=== PATIENT | male | born 1950 | race African-American/Black ===

== ENCOUNTER 2020-05-28 13:18 | Inpatient (IN) | payer MEDICARE, MEDICAID ==
[~2020-05-28] VITALS: Ht 182.9 cm; Wt 133.8 kg
[2020-05-28 14:27] LABS: BASOPHILS 0.1 % (0-2); EOSINOPHILS 1.6 % (0-7); HEMOGLOBIN 7.9 g/dL (13.5-17.5); IMMATURE GRANULOCYTES 0.5 % (0-5); LYMPHOCYTE ABS# 1.26 10x3/uL (1.32-3.57); LYMPHOCYTES 10.8 % (15-50); MCH 24.5 pg (26.0-34.0); MCHC 30.4 g/dL (31.0-37.0); MCV 80.7 fL (80.0-100.0); MEAN PLATELET VOLUME 9.9 fL (7.4-10.4); NEUTROPHIL ABS# 9.24 10x3/uL (1.78-5.38); PLATELET COUNT 195 10x3/uL (130-400); RBC 3.22 10x6/uL (4.20-6.10); RDW 20.3 % (11.5-14.5); WBC 11.7 10x3/uL (4.8-10.8)
[2020-05-28 14:31] LABS: APTT 23.2 SECONDS (22.8-39.4); INR 1.32 (0.85-1.17); PROTIME 15.2 SECONDS (11.6-15.0)
[2020-05-28 14:34] LABS: CALC OSMOLALITY 278 mosm/kg (275-300); CALCIUM 8.3 mg/dL (8.5-10.1); CARBON DIOXIDE 29.9 mmol/L (21.0-32.0); CHLORIDE - SERUM 103 mmol/L (98-107); CREATININE - SERUM 1.1 mg/dL (0.6-1.3); GLUCOSE 123 mg/dL (74-106); SODIUM 136 mmol/L (136-145); UREA NITROGEN 29 mg/dL (7-18); eGFR NON AFRICAN AMERICAN 71 mL/min (90-120)
[2020-05-28 15:03] LABS: ALBUMIN 1.3 g/dL (3.4-5.0); ALKALINE PHOSPHATASE 127 U/L (30-120); ALT (SGPT) 36 U/L (10-68); BILIRUBIN - TOTAL 0.31 mg/dL (0.2-1.3); CKMB 0.1 U/L (0.0-3.6); CREATINE KINASE 14 UL (21-232); PRO BNP 1269 pg/mL (0-125); PROTEIN - SERUM 6.6 g/dL (6.4-8.2); TROPONIN-I < 0.017 ng/mL (0.000-0.060)
[2020-05-28 19:21] VITALS: BP 120/57; BMI 40.8
[2020-05-28 20:00] VITALS: BP 113/43
--- NOTE | 2020-05-28 20:00 | NUR ---
PT IN TEARS IN ROOM. WHEN ASKED IF HE WAS IN PAIN, HE REPLIED, "I AM." UNABLE TO VOICED WHERE. DR. MARILYN FREIRE, CTM.
[2020-05-29] VITALS: BP 111/50
--- NOTE | 2020-05-29 01:33 | NUR ---
I have reviewed this patient and I concur with the Shift Assessment completed by the Licensed Practical Nurse today this shift.
[2020-05-29 04:00] VITALS: BP 111/42
[2020-05-29] MEDS ORDERED: ALBUTEROL1.25 MG/3 INH (05:55)
[2020-05-29] MEDS ORDERED: CARAFATE1 G PO (05:55)
[2020-05-29] MEDS ORDERED: LIPITOR20 MG PO (05:55)
[2020-05-29] MEDS ORDERED: TRUSOPT 2 % OPT10 ML EACH EYE (05:56)
[2020-05-29] MEDS ORDERED: ZYRTEC10 MG PO (05:56)
[2020-05-29] MEDS ORDERED: FLUTICASONE PRO16 GM NASAL (05:57)
[2020-05-29] MEDS ORDERED: PROZAC40 MG PO (05:57)
[2020-05-29] MEDS ORDERED: PROZAC20 MG PO (05:57)
[2020-05-29] MEDS ORDERED: CARDURA2 MG PO (05:57)
[2020-05-29] MEDS ORDERED: HEALTHYLAX17 GM PO (05:58)
[2020-05-29] MEDS ORDERED: HYDROCODON-ACE1 EAC7 PO (05:58)
[2020-05-29] MEDS ORDERED: ACETAMINOP160 MG/5 M PO (05:59)
[2020-05-29] MEDS ORDERED: ACIDOPHILUS-PE1 EACH PO (06:00)
[2020-05-29] MEDS ORDERED: LEVSIN/ANASP0.125 MG PO (06:00)
[2020-05-29] MEDS ORDERED: LOPRESSOR25 MG PO (06:01)
[2020-05-29] MEDS ORDERED: PROMOD LIQUID P30 M1 PO (06:02)
[2020-05-29] MEDS ORDERED: XARELTO20 MG PO (06:03)
[2020-05-29] MEDS ORDERED: BOUDREAUXS BUTT60 GM TOPICAL (06:03)
[2020-05-29] MEDS ORDERED: TIMOPTIC 0.5 % O5 ML EACH EYE (06:03)
[2020-05-29] MEDS ORDERED: GALZIN50 MG PO (06:04)
[2020-05-29 07:38] LABS: BILIRUBIN NEGATIVE (NEGATIVE); KETONE NEGATIVE (NEGATIVE); NITRITE NEGATIVE (NEGATIVE)
[2020-05-29 07:43] LABS: BACTERIA FEW HPF (NONE SEEN); SQUAMOUS EPITHELIAL OCC HPF (0-4); WHITE CELLS - URINE 0-5 HPF (0-1)
[2020-05-29 07:45] LABS: ALBUMIN 1.5 g/dL (3.4-5.0); ALKALINE PHOSPHATASE 105 U/L (30-120); ALT (SGPT) 30 U/L (10-68); CALC OSMOLALITY 283 mosm/kg (275-300); CALCIUM 8.4 mg/dL (8.5-10.1); CARBON DIOXIDE 30.4 mmol/L (21.0-32.0); CHLORIDE - SERUM 106 mmol/L (98-107); CREATININE - SERUM 0.9 mg/dL (0.6-1.3); GLUCOSE 82 mg/dL (74-106); MAGNESIUM - SERUM 1.8 mg/dL (1.8-2.4); PHOSPHOROUS 4.5 mg/dL (2.5-4.9); POTASSIUM - SERUM 4.1 mmol/L (3.5-5.1); PROTEIN - SERUM 5.9 g/dL (6.4-8.2); SODIUM 140 mmol/L (136-145); UREA NITROGEN 28 mg/dL (7-18); eGFR NON AFRICAN AMERICAN 89 mL/min (90-120)
[2020-05-29 08:28] VITALS: BP 105/57
[2020-05-29 10:04] LABS: BASOPHILS 0.1 % (0-2); EOSINOPHILS 1.6 % (0-7); HEMATOCRIT 23.6 % (42.0-54.0); IMMATURE GRANULOCYTES 0.3 % (0-5); LYMPHOCYTE ABS# 1.55 10x3/uL (1.32-3.57); LYMPHOCYTES 13.1 % (15-50); MCH 24.7 pg (26.0-34.0); MCHC 30.5 g/dL (31.0-37.0); MCV 80.8 fL (80.0-100.0); MEAN PLATELET VOLUME 9.9 fL (7.4-10.4); MONOCYTES 10.3 % (2-11); NEUTROPHIL ABS# 8.81 10x3/uL (1.78-5.38); NEUTROPHILS 74.6 % (40-80); PLATELET COUNT 210 10x3/uL (130-400); RBC 2.92 10x6/uL (4.20-6.10); RDW 20.4 % (11.5-14.5); WBC 11.8 10x3/uL (4.8-10.8)
[2020-05-29 10:20] LABS: HEMOGLOBIN 7.2 g/dL (13.5-17.5)
--- NOTE | 2020-05-29 10:41 | NUR ---
CALL TO DR GARCIA'S OFFICE FOR CLARIFICATION OF ORDERS. ALSO TO REPORT HEMOGLOBIN OF 7.2.
[2020-05-29 12:17] VITALS: BP 111/54
[2020-05-29 14:44] VITALS: BMI 40.7
--- NOTE | 2020-05-29 18:52 | NUR ---
TUBE FEEDINGS INITAIATED JEVITY 1.5 @ 40/HR WITH 25 CC FLUSH EVERY 2 HOURS.
[2020-05-29 21:49] VITALS: BP 122/50
--- NOTE | 2020-05-29 23:49 | NUR ---
I have reviewed this patient and I concur with the Shift Assessment completed by the Licensed Practical Nurse today this shift.
[2020-05-30 00:05] VITALS: BP 130/51
--- NOTE | 2020-05-30 04:02 | NUR ---
PEG TUBE RESIDUAL < 10ML. INCREASED FEED TO 50ML/HR. CTM.
[2020-05-30 04:59] VITALS: BP 153/84
--- NOTE | 2020-05-30 08:02 | NUR ---
RESTING IN BED, NO DISTRESS NOTED, IV INFUSING PER L ARM, JEVITY AT 50, CONT TO MONITOR RESIDUAL, TELE IN PLACE, EYES CLOSED, CONT TO MONITOR
[2020-05-30 08:54] VITALS: BP 104/58
[2020-05-30 11:13] LABS: BASOPHILS 0.1 % (0-2); EOSINOPHILS 1.8 % (0-7); HEMATOCRIT 25.9 % (42.0-54.0); HEMOGLOBIN 7.9 g/dL (13.5-17.5); IMMATURE GRANULOCYTES 0.4 % (0-5); LYMPHOCYTE ABS# 1.32 10x3/uL (1.32-3.57); LYMPHOCYTES 14.5 % (15-50); MCH 24.8 pg (26.0-34.0); MCHC 30.5 g/dL (31.0-37.0); MCV 81.2 fL (80.0-100.0); MEAN PLATELET VOLUME 9.5 fL (7.4-10.4); NEUTROPHILS 71.2 % (40-80); PLATELET COUNT 201 10x3/uL (130-400); RBC 3.19 10x6/uL (4.20-6.10); RDW 19.9 % (11.5-14.5); WBC 9.1 10x3/uL (4.8-10.8)
[2020-05-30 11:38] LABS: ALKALINE PHOSPHATASE 91 U/L (30-120); BILIRUBIN - TOTAL 0.39 mg/dL (0.2-1.3); CALCIUM 8.8 mg/dL (8.5-10.1); CARBON DIOXIDE 29.4 mmol/L (21.0-32.0); CHLORIDE - SERUM 107 mmol/L (98-107); POTASSIUM - SERUM 3.7 mmol/L (3.5-5.1); PROTEIN - SERUM 6.5 g/dL (6.4-8.2); SODIUM 141 mmol/L (136-145); UREA NITROGEN 27 mg/dL (7-18); VANCOMYCIN - TROUGH 26.3 ug/mL (10.0-20.0); eGFR NON AFRICAN AMERICAN 79 mL/min (90-120)
[2020-05-30 11:39] LABS: ALT (SGPT) 22 U/L (10-68); CALC OSMOLALITY 289 mosm/kg (275-300); GLUCOSE 174 mg/dL (74-106)
[2020-05-30 14:48] VITALS: BP 119/52
[2020-05-30 17:51] VITALS: BP 124/52
--- NOTE | 2020-05-30 20:16 | NUR ---
PATIENT RESTING IN BED WITH NO S/S OF DISTRESS. PATIENT DENIES NEEDS AT THIS TIME. BED IN LOWEST POSITION AND CALL LIGHT IN REACH. ENCOURAGED PATIENT TO CALL WITH NEEDS.
[2020-05-30 20:43] VITALS: BP 121/52
--- NOTE | 2020-05-30 21:46 | NUR ---
ADMINISTERED MEDS PER ORDERS. PATIENT MELINA WELL. ENCOURAGED TO CALL WITH NEEDS.
[2020-05-31 07:13] LABS: BASOPHILS 0.1 % (0-2); EOSINOPHILS 1.9 % (0-7); HEMOGLOBIN 7.8 g/dL (13.5-17.5); IMMATURE GRANULOCYTES 0.4 % (0-5); LYMPHOCYTE ABS# 1.48 10x3/uL (1.32-3.57); LYMPHOCYTES 15.5 % (15-50); MCH 24.5 pg (26.0-34.0); MCV 81.5 fL (80.0-100.0); MEAN PLATELET VOLUME 9.7 fL (7.4-10.4); MONOCYTES 12.5 % (2-11); NEUTROPHIL ABS# 6.63 10x3/uL (1.78-5.38); NEUTROPHILS 69.6 % (40-80); PLATELET COUNT 215 10x3/uL (130-400); RBC 3.19 10x6/uL (4.20-6.10); RDW 19.9 % (11.5-14.5); WBC 9.5 10x3/uL (4.8-10.8)
[2020-05-31 07:40] LABS: ALBUMIN 2.3 g/dL (3.4-5.0); ALKALINE PHOSPHATASE 88 U/L (30-120); ALT (SGPT) 23 U/L (10-68); CALC OSMOLALITY 286 mosm/kg (275-300); CALCIUM 8.2 mg/dL (8.5-10.1); CARBON DIOXIDE 29.5 mmol/L (21.0-32.0); CHLORIDE - SERUM 105 mmol/L (98-107); CREATININE - SERUM 0.9 mg/dL (0.6-1.3); GLUCOSE 190 mg/dL (74-106); POTASSIUM - SERUM 3.9 mmol/L (3.5-5.1); PROTEIN - SERUM 6.2 g/dL (6.4-8.2); SODIUM 140 mmol/L (136-145); UREA NITROGEN 22 mg/dL (7-18); eGFR NON AFRICAN AMERICAN 89 mL/min (90-120)
[2020-05-31 09:27] VITALS: BP 156/60
--- NOTE | 2020-05-31 11:45 | NUR ---
RESTING IN BED, NO DISTRESS NOTED, O2 PER TRACH, JEVITY PER PEG AT 70, TURNED PER STAFF, SANDOVAL TO GRAVITY
--- NOTE | 2020-05-31 11:55 | NUR ---
NEW IV STARTED TO L HAND FOR BLOOD TRANSFUSION
--- NOTE | 2020-05-31 14:52 | NUR ---
BLOOD TRANSFUSION STARTED, CONT TO MONITOR
--- NOTE | 2020-05-31 14:59 | EC ---
PATIENT:SERGE DURHAM DATE OF SERVICE: 05/28/20 SEX: M MEDICAL RECORD: [id number] DATE OF : [birth year] LOCATION:D.MS Fried[facility] AGE OF PATIENT: 69 ADMISSION DATE: 05/28/20 REFERRING PHYSICIAN: INTERPRETING PHYSICIAN: REILLY JIMENEZ MD ECHOCARDIOGRAM REPORT ECHO CHARGES 4 ECHO COMPLETE Date: 05/29/20 CLINICAL DIAGNOSIS: ANASARCA ECHOCARDIOGRAPHIC MEASUREMENTS (adult normal given) AC root (d.<3.7cm) 2.8 cm LV Septum d (<1.2 cm> 1.2 cm Valve Excursion 1.8 cm LV Septum (systole) 1.5 cm Left Atria (s.<4.0cm> 3.1 cm LVPW d(<1.2cm) 1.0 cm RV (d.<2.3cm) 3.0 cm LVPW (sytole) 1.4 cm LV diastole(<5.6CM) 4.8 cm MV E-F(>70mm/sec) cm LV systole 3.2 cm LVOT Diameter 1.8 cm MV exc.(>10mm) 1.7 cm Est.ejection fraction (50-75%) % DOPPLER: LVIT cm/sec A 97 cm/sec E 72 cm/sec LA cm/sec RVSP 41 mmHg LVOT 99 cm/sec AOP1/2T m/s Asc. Ao 159 cm/sec RVOT 71 cm/sec RA cm/sec PA 90 cm/sec AV Gradient Peak 10.1 mmHg AV Mean 5.3 mmHg AV Area 1.6 cm MV Gradient Peak 5.1 mmHg MV Mean 2.9 mmHg MV Area cm COMMENTS: Family Resource Management Specialist: Luz Marina ALBARADO Diesel Mechanic Construction: 5 Dr. Jimenez TAPE# Pericardial Effusion Y DATE OF SERVICE: INTERPRETATION: Normal left ventricular chamber size and contractile function, ejection fraction 55%. Left atrial chamber appears normal. Right atrium and right ventricular chamber size and function appears normal. Aortic valve appears normal. No aortic regurgitation/stenosis. Mitral valve appears normal. No mitral regurgitation. Tricuspid valve appears normal. Trace tricuspid regurgitation. Pulmonic valve appears normal. No pulmonary insufficiency. No pericardial effusion visualized. ECHOCARDIOGRAM REPORT [id number] SERGE DURHAM IMPRESSION: Normal left ventricular chamber size and contractile function, ejection fraction 55%. TRANSINT:[id number] Voice Confirmation ID: [id number] DOCUMENT ID: [id number] REILLY JIMENEZ MD at 1459 CC: [id number] DICTATION DATE: 05/30/20 1317 VAT WASHER: 05/30/20 1534 ADM IN [facility] [address] [place] [id number]
[2020-05-31 15:22] VITALS: BP 130/62
--- NOTE | 2020-05-31 18:19 | NUR ---
BLOOD COMPLETED, MELINA WELL, CONT TO MONITOR
--- NOTE | 2020-05-31 19:48 | NUR ---
PATIENT RESTING IN BED WITH NO S/S OF DISTRESS. PATIENT DENIES NEEDS AT THIS TIME. BED IN LOWEST POSITION, CALL LIGHT IN REACH, BED ALARM ON. ENCOURAGED PATIENT TO CALL WITH NEEDS.
--- NOTE | 2020-05-31 20:22 | NUR ---
ADMINISTERED MEDS PER ORDERS. PATIENT MELINA WELL. ENCOURAGED TO CALL WITH NEEDS.
[2020-05-31 23:02] VITALS: BP 136/67
[2020-06-01 05:16] VITALS: BP 124/45
[2020-06-01 08:35] VITALS: BP 143/53
--- NOTE | 2020-06-01 08:50 | NUR ---
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
[2020-06-01 11:27] VITALS: BP 114/51
--- NOTE | 2020-06-01 13:40 | NUR ---
Nutrition follow-up: NPO at this time Jevity 1.5 cata infusing at goal rate of 70 ml/hr via PEG tube Pt tolerating TF at goal rate per nurse Labs reviewed Wt: 289# Tolerating TF at 70 ml/hr goal RDN follow-up: 06/04/20
--- NOTE | 2020-06-01 14:07 | MORECARE ---
CASE MANAGEMENT DISCHARGE SUMMARY PATIENT: SERGE DURHAM UNIT: [id number] ADM DATE: 05/28/20 AGE: 69 : 51 SEX: M ROOM/BED: D.2224 AUTHOR: BELLO PENA PHYSICIAN: REFERRING PHYSICIAN: MAYTE GARCIA MD DATE OF SERVICE: 06/01/20 Discharge Plan Patient Name: SERGE DURHAM Facility: [facility]:[place] : 1950 Planned Disposition: Anticipated Discharge Date: Discharge Date: Expected LOS: Initial Reviewer: [email or web address] Initial Review Date: 05/28/2020 Generated: 06/01/20 3:06 pm Patient Name: SERGE DURHAM Page 88435 at 1407 All edits/amendments must be made on the electronic document DICTATION DATE: 06/01/20 140 PULLEY MORTISER OPERATOR: AMILCAR 06/01/20 1407 RPT#: [id number] DC DATE: STATUS: ADM IN [facility] [address] [place] [address] END OF REPORT
[2020-06-01 14:29] LABS: BASOPHILS 0.1 % (0-2); EOSINOPHILS 0.6 % (0-7); HEMATOCRIT 27.8 % (42.0-54.0); HEMOGLOBIN 8.4 g/dL (13.5-17.5); IMMATURE GRANULOCYTES 0.4 % (0-5); LYMPHOCYTE ABS# 1.65 10x3/uL (1.32-3.57); MCH 25.1 pg (26.0-34.0); MCHC 30.2 g/dL (31.0-37.0); MEAN PLATELET VOLUME 9.6 fL (7.4-10.4); MONOCYTES 8.7 % (2-11); NEUTROPHIL ABS# 10.76 10x3/uL (1.78-5.38); NEUTROPHILS 78.2 % (40-80); PLATELET COUNT 190 10x3/uL (130-400); RBC 3.35 10x6/uL (4.20-6.10); RDW 19.8 % (11.5-14.5)
[2020-06-01 14:31] LABS: WBC 13.8 10x3/uL (4.8-10.8)
[2020-06-01 14:43] LABS: ALBUMIN 2.1 g/dL (3.4-5.0); ANION GAP 15.2 mmol/L (8-16); BILIRUBIN - TOTAL 0.46 mg/dL (0.2-1.3); CALCIUM 8.3 mg/dL (8.5-10.1); CARBON DIOXIDE 26.1 mmol/L (21.0-32.0); CREATININE - SERUM 1.1 mg/dL (0.6-1.3); POTASSIUM - SERUM 4.3 mmol/L (3.5-5.1); PROTEIN - SERUM 5.8 g/dL (6.4-8.2); VANCOMYCIN - TROUGH 25.5 ug/mL (10.0-20.0)
--- NOTE | 2020-06-01 15:18 | NUR ---
SPOKE WITH SHERRILL BASHIR AT DR. SANDERS OFFICE NOTIFIED OF CRITICAL LACTIC ACID 3.0
[2020-06-01 17:19] VITALS: BP 125/46
--- NOTE | 2020-06-01 19:45 | NUR ---
RECEIVED BEDSIDE REPORT. PT LAYING IN BED, NO SIGNS OF DISTRESS. BED LOW, ALARM ON. WILL CONTINUE TO MONITOR.
--- NOTE | 2020-06-01 19:45 | NUR ---
RECEIVED BEDSIDE REPORT. PT LAYING IN BED, ORIENTATED TO SELF, NON-VERBAL. PIV TO LEFT HAND, PATENT AND INFUSING, NO REDNESS OR SWELLING. PIV TO LEFT CHEST PATENT AND S/L, NO REDNESS OR SWELLING. TRACH COLLAR IN PLACE, ON 10L. SANDOVAL IN PLACE, DRAINING TO GRAVITY, STATLOCK IN PLACE. TELEMETRY IN PLACE, [address] PLACE, PATENT AND INFUSING. GENERALIZED 2+ EDEMA TO ALL EXTREMITIES. WOUND TO RIGHT HEEL, DRSG C/D/I. REDNESS TO BUTTOCKS. PT IS BEDFAST, TOTAL CARE. BED LOW, CL IN REACH.
[2020-06-01 20:00] VITALS: BP 105/45
[2020-06-02] VITALS: BP 112/46
--- NOTE | 2020-06-02 00:50 | NUR ---
PT LEGS ARE TO LARGE FOR THE SCDS ON THE FLOOR. CENTRAL SUPPLY IS CLOSED, WILL ORDER IN THE MORNING.
[2020-06-02 04:00] VITALS: BP 121/53
[2020-06-02 09:28] VITALS: BP 160/57
--- NOTE | 2020-06-02 09:37 | NUR ---
PATIENT SLEEPING. ASSESSMENT COMPLETE. BED LOW. BED ALARM ON. CALL SALGUERO AND PERSONAL ITEMS IN REACH. WILL CONTINUE TO [id number].
--- NOTE | 2020-06-02 10:24 | MORECARE ---
CASE MANAGEMENT DISCHARGE SUMMARY PATIENT: SERGE DURHAM UNIT: [id number] ADM DATE: 05/28/20 AGE: 69 : 51 SEX: M ROOM/BED: D.2224 AUTHOR: BELLO PENA PHYSICIAN: REFERRING PHYSICIAN: MAYTE GARCIA MD DATE OF SERVICE: 06/02/20 Discharge Plan Patient Name: SERGE DURHAM [facility] [facility] 1950 Planned Disposition: Nursing Facility [facility]DA Cert Anticipated Discharge Date: Discharge Date: Expected LOS: Initial Reviewer: [email or web address] Initial Review Date: 05/28/2020 Generated: 06/02/20 11:24 am DCPIA - Discharge Planning Initial Assessment Updated by [email or web address]: Evelyne Flores on 06/02/20 10:24 am * PCP [facility] * Pharmacy [facility] * Preadmission Environment Wet Process Technician Residential * Facility Name [facility] * Can the patient safely return to the preadmission environment? Yes * Has this patient been hospitalized within the prior 30 days at any hospital? No Last DP export: 06/01/20 1:07 pm Patient Name: SERGE DURHAM Page 08233 at 1024 All edits/amendments must be made on the electronic document DICTATION DATE: 06/02/20 1024 COMMUNITY ARTS WORKER: AMILCAR 06/02/20 1024 RPT#: [id number] HI DATE: STATUS: ADM IN [facility] [address] [place] [address] END OF REPORT
--- NOTE | 2020-06-02 10:34 | MORECARE ---
CASE MANAGEMENT DISCHARGE SUMMARY PATIENT: SERGE DURHAM UNIT: [id number] ADM DATE: 05/28/20 AGE: 69 : 51 SEX: M ROOM/BED: D.2224 AUTHOR: BELLO PENA PHYSICIAN: REFERRING PHYSICIAN: MAYTE GARCIA MD DATE OF SERVICE: 06/02/20 Discharge Plan Patient Name: SERGE DURHAM Facility: [facility]:[place] : 1950 Planned Disposition: Nursing Facility [facility] Cert Anticipated Discharge Date: Discharge Date: Expected LOS: Initial Reviewer: [email or web address] Initial Review Date: 05/28/2020 Generated: 06/02/20 11:33 am Comments DCP- Discharge Planning Updated by [email or web address]: Evelyne Flores on 06/02/20 9:[address] Patient Name: SERGE DURHAM Admission Status: ER Accout number: [id number] Admission Date: 05-28-2020 : 1950 Admission Diagnosis:GENERALIZED EDEMA Attending: MAYTE GARCIA Current LOS: 5 Anticipated DC Date: Planned Disposition: Nursing Facility [facility] Cert Primary Insurance: MEDICARE IP PART B ONLY Discharge Planning Comments: PATIENT RESTING IN ROOM WITH TRACH COLAR IN PLACE. 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 HE IS CURRENTLY ON DROPLET ISOLATION. ANTICIPATE DC PLAN FOR PATIENT TO DC BACK TO [facility] WHEN MEDICALLY STABLE. CM TO FOLLOW AND ASSIST NEEDED. Portfolio Assistant: Evelyne Flores DCPIA - Discharge Planning Initial Assessment Updated by [email or web address]: Evelyne Flores on 06/02/20 10:24 am * PCP [facility] * Pharmacy [facility] * Preadmission Environment Vault Manager Skilled Nursing * Facility Name [facility] * Can the patient safely return to the preadmission environment? Yes * Has this patient been hospitalized within the prior 30 days at any hospital? No Last DP export: 06/02/20 9:24 am Patient Name: SERGE DURHAM Page 58010 at 1034 All edits/amendments must be made on the electronic document DICTATION DATE: 06/02/20 1034 SHIRRER: AMILCAR 06/02/20 1034 RPT#: [id number] DC DATE: STATUS: ADM IN [facility] [address] [place] [address] END OF REPORT
[2020-06-02 12:37] VITALS: BP 137/88
--- NOTE | 2020-06-02 14:35 | NUR ---
IV TO LEFT HAND AND LEFT CHEST NOT FLUSHING WELL. BOTH REMOVED WITH TIP INTACT. IV RESITED TO OUTTER LEFT HAND AND BLOOD DRAWN FOR AM LABS. SENT TO LAB WITH FAMILY ADVOCATE.
--- NOTE | 2020-06-02 14:37 | NUR ---
NEW TUBE FEED SET UP HUNG AND DATED.
[2020-06-02 14:43] LABS: HEMATOCRIT 27.7 % (42.0-54.0); HEMOGLOBIN 8.3 g/dL (13.5-17.5); LYMPHOCYTE ABS# 1.52 10x3/uL (1.32-3.57); MCV 83.4 fL (80.0-100.0); MEAN PLATELET VOLUME 9.7 fL (7.4-10.4); NEUTROPHIL ABS# 8.83 10x3/uL (1.78-5.38); PLATELET COUNT 158 10x3/uL (130-400); RBC 3.32 10x6/uL (4.20-6.10); RDW 20.3 % (11.5-14.5); WBC 11.7 10x3/uL (4.8-10.8)
--- NOTE | 2020-06-02 14:50 | NUR ---
CALLED [facility]ENTRAL SUPPLY FOR [facility] TO BE ABLE TO MORE EFFICIENTLY OFFLOAD PATIENT.
[2020-06-02 15:42] LABS: ALKALINE PHOSPHATASE 85 U/L (30-120); ALT (SGPT) 28 U/L (10-68); BILIRUBIN - TOTAL 0.29 mg/dL (0.2-1.3); CALC OSMOLALITY 300 mosm/kg (275-300); CARBON DIOXIDE 27.2 mmol/L (21.0-32.0); CHLORIDE - SERUM 111 mmol/L (98-107); CREATININE - SERUM 0.9 mg/dL (0.6-1.3); GLUCOSE 184 mg/dL (74-106); POTASSIUM - SERUM 4.2 mmol/L (3.5-5.1); PROTEIN - SERUM 5.6 g/dL (6.4-8.2); SODIUM 145 mmol/L (136-145); UREA NITROGEN 31 mg/dL (7-18); eGFR NON AFRICAN AMERICAN 89 mL/min (90-120)
[2020-06-02 15:50] LABS: LYMPHOCYTES 14 % (15-50); MONOCYTES 9 % (2-11); NEUTROPHILS 49 % (40-80); PLATELET ESTIMATE NORMAL
[2020-06-02 17:27] VITALS: BP 140/67
[2020-06-02 20:00] VITALS: BP 134/56
--- NOTE | 2020-06-02 23:14 | NUR ---
RECEIVED BEDSIDE REPORT. PT LAYING IN BED, NO SIGNS OF DISTRESS. BED LOW, ALARM ON. WILL CONTINUE TO MONITOR.
--- NOTE | 2020-06-02 23:44 | NUR ---
ADMIN MEDS PER ORDER, PT TRACH SOUNDED NESSA, CALLED RESP TO SUCTION PT, RESP RESPONDED AND SUCTIONED. PT TOLERATED WELL. BED LOW, ALARM ON.
--- NOTE | 2020-06-03 03:35 | NUR ---
2 CNAS AND 2 RNS ASSISTED WITH BED BATH, DRSG CHANGED TO BUTTOCKS AND LEFT HEEL. PT TOLERATED WELL. BED LOW, CL IN REACH.
[2020-06-03 04:00] VITALS: BP 151/69
[2020-06-03 06:44] LABS: ALBUMIN 2.4 g/dL (3.4-5.0); ANION GAP 10.6 mmol/L (8-16); BILIRUBIN - TOTAL 0.54 mg/dL (0.2-1.3); CALCIUM 9.2 mg/dL (8.5-10.1); CARBON DIOXIDE 27.9 mmol/L (21.0-32.0); GENTAMICIN - TROUGH 6.3 ug/mL (0.5-2.0); POTASSIUM - SERUM 4.5 mmol/L (3.5-5.1)
[2020-06-03 06:45] LABS: CREATININE - SERUM 1.2 mg/dL (0.6-1.3)
[2020-06-03 06:47] LABS: BASOPHILS 0.1 % (0-2); EOSINOPHILS 0.8 % (0-7); HEMATOCRIT 29.7 % (42.0-54.0); HEMOGLOBIN 8.7 g/dL (13.5-17.5); IMMATURE GRANULOCYTES 0.3 % (0-5); LYMPHOCYTE ABS# 1.38 10x3/uL (1.32-3.57); LYMPHOCYTES 9.8 % (15-50); MCH 24.4 pg (26.0-34.0); MCHC 29.3 g/dL (31.0-37.0); MCV 83.4 fL (80.0-100.0); MEAN PLATELET VOLUME 9.9 fL (7.4-10.4); MONOCYTES 3.5 % (2-11); NEUTROPHIL ABS# 12.07 10x3/uL (1.78-5.38); NEUTROPHILS 85.5 % (40-80); RBC 3.56 10x6/uL (4.20-6.10); RDW 20.4 % (11.5-14.5); WBC 14.1 10x3/uL (4.8-10.8)
[2020-06-03 06:48] LABS: PLATELET COUNT 197 10x3/uL (130-400)
--- NOTE | 2020-06-03 07:33 | NUR ---
SX MODERATE AMOUNTS FROTHY WHITE SECRETIONS
[2020-06-03 07:56] VITALS: BP 105/42
--- NOTE | 2020-06-03 08:00 | NUR ---
PT TO ROOM FROM [facility] ON BED. CARDIZEM GTT INITITATED. TUBE FEEDING AT 70ML/HR VIA PEG. TRACH COLLAR IN PLACE, SUCTIONED FOR CLEARANCE. SCD'S ON WITH HEEL PROTECTORS. SANDOVAL AT BEDSIDE. PT NON-VERBAL.
[2020-06-03 08:09] VITALS: BP 106/42
[2020-06-03 11:40] VITALS: BP 106/46
[2020-06-03 16:11] VITALS: BP 108/42
[2020-06-03 20:42] VITALS: BP 107/47
[2020-06-04] VITALS: BP 117/50
--- NOTE | 2020-06-04 02:39 | NUR ---
I have reviewed this patient and I concur with the Shift Assessment completed by the Licensed Practical Nurse today this shift.
[2020-06-04 04:00] VITALS: BP 106/48
[2020-06-04 06:17] LABS: RBC 2.79 10x6/uL (4.20-6.10); WBC 20.2 10x3/uL (4.8-10.8)
[2020-06-04 06:18] LABS: HEMATOCRIT 22.9 % (42.0-54.0); LYMPHOCYTE ABS# 1.44 10x3/uL (1.32-3.57); MCH 25.1 pg (26.0-34.0); MCHC 30.6 g/dL (31.0-37.0); MCV 82.1 fL (80.0-100.0); MEAN PLATELET VOLUME 10.3 fL (7.4-10.4); NEUTROPHIL ABS# 16.76 10x3/uL (1.78-5.38); PLATELET COUNT 172 10x3/uL (130-400); RDW 20.7 % (11.5-14.5)
--- NOTE | 2020-06-04 06:27 | NUR ---
CRITICAL HGB OF 7.0 CALLED FROM LAB, CALL OUT TO DR SANDERS TO REPORT CRITICAL LAB.
[2020-06-04 06:46] LABS: ALBUMIN 2.4 g/dL (3.4-5.0); ANION GAP 11.9 mmol/L (8-16); BILIRUBIN - TOTAL 1.14 mg/dL (0.2-1.3); CARBON DIOXIDE 29.1 mmol/L (21.0-32.0); CREATININE - SERUM 2.4 mg/dL (0.6-1.3); PROTEIN - SERUM 5.7 g/dL (6.4-8.2)
[2020-06-04 06:47] LABS: EOSINOPHILS 1 % (0-7); LYMPHOCYTES 7 % (15-50); MONOCYTES 2 % (2-11); NEUTROPHILS 90 % (40-80); PLATELET ESTIMATE NORMAL; TARGET CELLS OCC
--- NOTE | 2020-06-04 07:13 | NUR ---
RECEIVE BEDSIDE SHIFT REPORT. RESTING IN BED WITH EYES CLOSED. NO S/S OF DISTRESS PRESENT AT THIS TIME. NOTHING THROUGH PEG TUBE UNTIL CT TODAY. DROPLET PRECAUTIONS IN PLACE. SCD'S ON. WILL CONTINUE POC AND SAFETY PRECAUTIONS.
--- NOTE | 2020-06-04 08:10 | NUR ---
AYAD ROMAN STATED IN REPORT SHE PAGED DR. SANDERS ABOUT CRITICAL HEMOGLOBIN WITH NO CALL BACK. WILL PAGE DR. GARCIA AT THIS TIME FOR ORDERS.
[2020-06-04 08:32] VITALS: BP 110/51
[2020-06-04 11:00] VITALS: BP 112/55
--- NOTE | 2020-06-04 11:05 | NUR ---
Nutrition Reassessment/Follow-up: Nursing reports no TF running currently; awaiting CT. Was receiving Jevity 1.5 @ 70 mL/hr; nursing unsure of flushes. Noted decrease in renal function. Diet: Jevity 1.5 @ 70 mL/hr No new wt; last wt: 300# (05/29) Labs noted: Na 147, BUN 56, Cre 2.4, GFR 35, K+ 5.0, Glu 109, Alb 2.4 Meds noted: Florajen, Miralax, Protonix, Humulin, Albumin -Nutrition needs unchanged. -Current TF regimen (Jevity 1.5 @ 70 mL/hr) provides 2520 kcal (104-124% est needs) & 107 g protein (110-132% est needs) *Rec goal rate of 60 mL/hr (provides 2160 kcal [89-107% est needs] & 92 g protein [95-114% est needs]) + H2O flushes 50 mL q hr. *Will need to monitor renal function and possibly change to Suplena. -Need new wt. -RD will follow up within 4 days.
--- NOTE | 2020-06-04 11:45 | NUR ---
PRE INFUSION VS 106/52, 96, 18, 98.8. NEEDS 2 UNITS OF PRBC. WILL REMAIN AT BEDSIDE FOR FIRST 15 MINS OF INFUSION TO MONITOR FOR REACTION. INFUSION STARTED AT 1149 AT 125ML/HR.
--- NOTE | 2020-06-04 12:05 | NUR ---
15 MINUTES POST INFUSION START VS 113/54, 94, 18, 98.2. NO S/S OF REACTION. INCREASED INFUSION TO 150ML/HR.
--- NOTE | 2020-06-04 12:36 | NUR ---
RESTARTED TUBE FEED AT 70ML/HR JEVITY 1.5.
[2020-06-04 20:13] VITALS: BP 104/49
[2020-06-04 23:25] VITALS: BP 101/55
--- NOTE | 2020-06-05 03:27 | NUR ---
PT RESTING, BLOOD CULTURES ORDERED FOR ELEVATED TEMP. RIGHT ARM SIGNIFICANTLY MORE SWOLLEN THEN LEFT. ELEVATED AND PT REPOSTIONED FOR COMPORT. WHEN ASKING THE PATIENT IF HE WAS IN PAIN HE OPENED HIS EYES AND EXPRESSED THAT HE WAS. COMFORT CARE PROVIDED. WILL CPOC.
[2020-06-05 04:20] VITALS: BP 91/40
[2020-06-05 06:09] LABS: BASOPHILS 0.1 % (0-2); EOSINOPHILS 0.8 % (0-7); HEMATOCRIT 27.9 % (42.0-54.0); HEMOGLOBIN 8.8 g/dL (13.5-17.5); IMMATURE GRANULOCYTES 0.3 % (0-5); LYMPHOCYTE ABS# 1.41 10x3/uL (1.32-3.57); LYMPHOCYTES 11.2 % (15-50); MCHC 31.5 g/dL (31.0-37.0); MCV 82.3 fL (80.0-100.0); MEAN PLATELET VOLUME 10.2 fL (7.4-10.4); MONOCYTES 9.9 % (2-11); NEUTROPHIL ABS# 9.81 10x3/uL (1.78-5.38); NEUTROPHILS 77.7 % (40-80); PLATELET COUNT 158 10x3/uL (130-400); RBC 3.39 10x6/uL (4.20-6.10); RDW 19.7 % (11.5-14.5); WBC 12.6 10x3/uL (4.8-10.8)
[2020-06-05 06:47] LABS: ALBUMIN 2.3 g/dL (3.4-5.0); BILIRUBIN - TOTAL 2.06 mg/dL (0.2-1.3); CALCIUM 9.5 mg/dL (8.5-10.1); CARBON DIOXIDE 29.2 mmol/L (21.0-32.0); POTASSIUM - SERUM 5.2 mmol/L (3.5-5.1); PROTEIN - SERUM 6.3 g/dL (6.4-8.2)
[2020-06-05 06:48] LABS: CREATININE - SERUM 3.4 mg/dL (0.6-1.3)
[2020-06-05 06:55] LABS: GENTAMICIN - TROUGH 12.4 ug/mL (0.5-2.0)
--- NOTE | 2020-06-05 07:05 | NUR ---
RECEIVE BEDSIDE SHIFT REPORT. LYING IN BED NODS HIS HEAD YES TO PAIN. WILL TALK WITH MD ABOUT PAIN MANAGEMENT. CARDIZEM TURNED DOWN TO 5 DURING WASTEWATER TREATMENT ENGINEER. WILL CONTINUE POC AND SAFETY PRECAUTIONS.
[2020-06-05 08:23] VITALS: BP 99/44
[2020-06-05 11:51] VITALS: BP 98/40
[2020-06-05 13:26] VITALS: Ht 182.9 cm; Wt 133.8 kg
--- NOTE | 2020-06-05 15:11 | NUR ---
D/C SANDOVAL CATHETER, WITHDREW 8ML FROM BALLOON. REINSERTED NEW SANDOVAL 16F, INSTILLED 10ML IN BALLOON. NO OUTPUT RIGHT AWAY. WILL WATCH AND COLLECT URINE SAMPLE IF ABLE.
[2020-06-05 15:14] VITALS: BP 84/40
--- NOTE | 2020-06-05 19:30 | NUR ---
PT LAYING SUPINE IN BED. PT APPEARS TO BE LETHARGIC, WILL RESPOND TO VOICE WITH MINIMAL HEAD MOVEMENT TO ANSWER QUESTIONS. PT APPEARS TO BE COMFORTABLE AND WITHOUT PAIN. CONTINUOUS FEEDINGS RUNNING AT 50. SCDS IN PLACE ALONG WITH FOOT DROP BOOTS. DRESSINGS ARE CLEAN AND DRY ON BUTTOCKS AND LEFT HEEL. 30ML OF URINE COLLECTED FROM SANDOVAL BAG FOR ORDERED URINE. RESPIRATORY THERAPIST AT BEDSIDE PERFORMING TRACH CARE. PT HAS TRACH WITH 6L O2 COLLAR IN PLACE. BED IN LOW POSITION, SHEETS AND GOWN CLEAN.
[2020-06-05 20:03] LABS: BILIRUBIN NEGATIVE (NEGATIVE); KETONE NEGATIVE (NEGATIVE); NITRITE NEGATIVE (NEGATIVE); UROBILINOGEN NORMAL mg/dL (< 2)
[2020-06-05 20:13] LABS: WHITE CELLS - URINE 25-50 HPF (0-1)
[2020-06-05 20:14] LABS: BACTERIA MANY HPF (NONE SEEN)
[2020-06-05 20:46] VITALS: BP 95/40
[2020-06-06 00:52] VITALS: BP 112/45
[2020-06-06 04:00] VITALS: BP 102/47
[2020-06-06 04:48] LABS: BASOPHILS 0.1 % (0-2); EOSINOPHILS 0.5 % (0-7); HEMATOCRIT 27.3 % (42.0-54.0); HEMOGLOBIN 8.4 g/dL (13.5-17.5); IMMATURE GRANULOCYTES 0.4 % (0-5); LYMPHOCYTE ABS# 1.48 10x3/uL (1.32-3.57); LYMPHOCYTES 11.4 % (15-50); MCH 25.5 pg (26.0-34.0); MCHC 30.8 g/dL (31.0-37.0); MEAN PLATELET VOLUME 10.2 fL (7.4-10.4); MONOCYTES 9.6 % (2-11); NEUTROPHIL ABS# 10.13 10x3/uL (1.78-5.38); PLATELET COUNT 149 10x3/uL (130-400); RBC 3.29 10x6/uL (4.20-6.10); RDW 20.3 % (11.5-14.5)
[2020-06-06 05:11] LABS: ALBUMIN 2.3 g/dL (3.4-5.0); ANION GAP 11.6 mmol/L (8-16); BILIRUBIN - TOTAL 1.53 mg/dL (0.2-1.3); CALCIUM 9.5 mg/dL (8.5-10.1); CARBON DIOXIDE 27.6 mmol/L (21.0-32.0); CREATININE - SERUM 4.2 mg/dL (0.6-1.3); GENTAMICIN - RANDOM 10.4 ug/mL (0.5-2.0); POTASSIUM - SERUM 5.2 mmol/L (3.5-5.1)
--- NOTE | 2020-06-06 06:37 | NUR ---
PATIENT TRACH SUCTIONED. MUCUS THICK AND LIGHT YELLOW. PATIENT TOLERATED WELL. O2 SAT 100 BEFORE AND AFTER
[2020-06-06 07:45] VITALS: BP 105/51
--- NOTE | 2020-06-06 09:27 | NUR ---
TRACH SUCTIONED. ORAL CARE GIVEN. MED GIVEN PER PEG AND FLUSHED WITH H2O. LINE IS PATENT. WILL CONT. PLAN OF CARE.
[2020-06-06 11:00] VITALS: BP 100/46
[2020-06-06 15:00] VITALS: BP 148/69
--- NOTE | 2020-06-06 16:02 | NUR ---
I&D BY DR. MCCULLOUGH OF LEFT THIGH ABCESS. WOUND CULTURE COLLECTED AND TAKEN TO LAB.
[2020-06-06 21:54] VITALS: BP 103/46
[2020-06-07 01:00] VITALS: BP 104/46
[2020-06-07 04:34] VITALS: BP 117/60
[2020-06-07 08:16] LABS: BASOPHILS 0.1 % (0-2); EOSINOPHILS 1.8 % (0-7); HEMATOCRIT 29.7 % (42.0-54.0); IMMATURE GRANULOCYTES 0.5 % (0-5); LYMPHOCYTE ABS# 1.64 10x3/uL (1.32-3.57); LYMPHOCYTES 14.6 % (15-50); MCH 25.1 pg (26.0-34.0); MCHC 30.3 g/dL (31.0-37.0); MEAN PLATELET VOLUME 10.6 fL (7.4-10.4); NEUTROPHIL ABS# 8.08 10x3/uL (1.78-5.38); PLATELET COUNT 167 10x3/uL (130-400); RBC 3.58 10x6/uL (4.20-6.10); RDW 20.6 % (11.5-14.5); WBC 11.2 10x3/uL (4.8-10.8)
[2020-06-07 08:30] LABS: ALBUMIN 2.2 g/dL (3.4-5.0); ANION GAP 12.9 mmol/L (8-16); BILIRUBIN - TOTAL 1.07 mg/dL (0.2-1.3); CALCIUM 9.6 mg/dL (8.5-10.1); CARBON DIOXIDE 27.5 mmol/L (21.0-32.0); CREATININE - SERUM 5.2 mg/dL (0.6-1.3); POTASSIUM - SERUM 5.4 mmol/L (3.5-5.1); PROTEIN - SERUM 6.3 g/dL (6.4-8.2)
[2020-06-07 08:34] VITALS: BP 104/52
[2020-06-07 11:34] VITALS: BP 102/58
[2020-06-07 16:28] VITALS: BP 109/57
[2020-06-07 19:00] VITALS: BP 119/63
--- NOTE | 2020-06-07 19:30 | NUR ---
RECEIVED REPORT, WILL ASSUME CARE OF PT, RESPONSE TO TOUCH, NO DISTRESS NOTICED AT THIS TIME, BED IS LOW, SRX3, CALL LIGHT IN REACH, WILL CONTINUE PLAN OF CARE
[2020-06-08] VITALS (7 sets, daily range): BP systolic 104–123; BP diastolic 46–61
[2020-06-08 05:58] LABS: BASOPHILS 0.2 % (0-2); EOSINOPHILS 2.4 % (0-7); HEMATOCRIT 27.9 % (42.0-54.0); HEMOGLOBIN 8.7 g/dL (13.5-17.5); IMMATURE GRANULOCYTES 0.7 % (0-5); LYMPHOCYTE ABS# 1.59 10x3/uL (1.32-3.57); MCH 25.8 pg (26.0-34.0); MCHC 31.2 g/dL (31.0-37.0); MCV 82.8 fL (80.0-100.0); MEAN PLATELET VOLUME 10.8 fL (7.4-10.4); MONOCYTES 10.8 % (2-11); NEUTROPHIL ABS# 6.95 10x3/uL (1.78-5.38); NEUTROPHILS 69.9 % (40-80); PLATELET COUNT 168 10x3/uL (130-400); RBC 3.37 10x6/uL (4.20-6.10); RDW 20.9 % (11.5-14.5); WBC 9.9 10x3/uL (4.8-10.8)
[2020-06-08 06:22] LABS: ALBUMIN 2.5 g/dL (3.4-5.0); ANION GAP 10.3 mmol/L (8-16); BILIRUBIN - TOTAL 0.78 mg/dL (0.2-1.3); CALCIUM 9.7 mg/dL (8.5-10.1); CARBON DIOXIDE 28.1 mmol/L (21.0-32.0); CREATININE - SERUM 5.8 mg/dL (0.6-1.3); POTASSIUM - SERUM 5.4 mmol/L (3.5-5.1); PROTEIN - SERUM 6.5 g/dL (6.4-8.2)
--- NOTE | 2020-06-08 08:00 | NUR ---
PT RECEIVED IN BED, LETHARGIC. AROUSE TO VOICE. MEDS GIVEN PER PEG, FEEDING RUNNING. LEFT THIGH DRESSING IS CDI. SANDOVAL NOTED WITH LITTLE OUTPUT. RT IN ROOM DOING TREATMENT, PULSE OX 100%.
--- NOTE | 2020-06-08 12:48 | NUR ---
Nutrition Reassessment/Follow-up: Trialysis placed today with plans to start HD. TF changed to Nepro per renal. Diet: Nepro @ 50 mL/hr No new wt; last wt: 300# (05/29) Labs noted: K+ 5.4, BUN 111, Cre 5.8, GFR 13, Glu 141, Alb 2.5 Meds noted: Lasix, Florajen, Miralax, Protonix, Albumin Est needs: 9528-1349 kcal/day (30-35 kcal/kg IBW) 95-105 g protein/day (1.2-1.3 g/kg IBW) 1000 mL H2O + UOP -Nepro @ 50 mL/hr provides 2160 kcal (76-89% est needs) & 97 g protein (92-102% est needs) daily. -Need new wt. -RD will follow up within 2-3 days.
--- NOTE | 2020-06-08 16:56 | NUR ---
PT'S DRESSING TO LEFT THIGH PACKED WITH 2 INCH KERLIX AND COVERED WITH 4X4. COPIOUS AMOUNTS OF DRAINAGE OUT OF WOUND. HEEL WOUND WITH MEPILEX DRESSING ON IT. RIGHT BUTT WOUND WITH NEW MEPILEX DRESSING APPLIED. PT HAD LARGE BM WHILE TURNING AND CHANGING LINENS. TRACH SPONGE CHANGED AND PT SUCTIONED.
--- NOTE | 2020-06-09 00:53 | NUR ---
RESTING WITH EYES CLOSED, NO S/S DISTRESS NOTED.
--- NOTE | 2020-06-09 03:25 | NUR ---
I have reviewed this patient and I concur with the Shift Assessment completed by the Licensed Practical Nurse today this shift.
[2020-06-09 05:04] VITALS: BP 104/41
[2020-06-09 05:09] LABS: BASOPHILS 0.1 % (0-2); EOSINOPHILS 1.5 % (0-7); HEMATOCRIT 26.5 % (42.0-54.0); HEMOGLOBIN 8.2 g/dL (13.5-17.5); IMMATURE GRANULOCYTES 0.4 % (0-5); LYMPHOCYTE ABS# 1.58 10x3/uL (1.32-3.57); LYMPHOCYTES 15.3 % (15-50); MCH 25.5 pg (26.0-34.0); MCHC 30.9 g/dL (31.0-37.0); MCV 82.6 fL (80.0-100.0); MEAN PLATELET VOLUME 10.1 fL (7.4-10.4); MONOCYTES 9.8 % (2-11); NEUTROPHIL ABS# 7.54 10x3/uL (1.78-5.38); NEUTROPHILS 72.9 % (40-80); PLATELET COUNT 145 10x3/uL (130-400); RBC 3.21 10x6/uL (4.20-6.10); RDW 20.6 % (11.5-14.5); WBC 10.3 10x3/uL (4.8-10.8)
[2020-06-09 05:43] LABS: ALBUMIN 2.5 g/dL (3.4-5.0); ANION GAP 10.4 mmol/L (8-16); BILIRUBIN - TOTAL 0.65 mg/dL (0.2-1.3); CALCIUM 9.1 mg/dL (8.5-10.1); CARBON DIOXIDE 28.8 mmol/L (21.0-32.0); GENTAMICIN - RANDOM 5.4 ug/mL (0.5-2.0); MAGNESIUM - SERUM 2.2 mg/dL (1.8-2.4); PHOSPHOROUS 3.7 mg/dL (2.5-4.9); POTASSIUM - SERUM 5.2 mmol/L (3.5-5.1); PROTEIN - SERUM 6.3 g/dL (6.4-8.2); VANCOMYCIN - RANDOM 14.6 ug/mL (10.0-20.0)
[2020-06-09 08:59] VITALS: BP 106/46
[2020-06-09 12:13] VITALS: BP 111/56
--- NOTE | 2020-06-09 14:48 | NUR ---
PATIENT LYING SEMI FOWLERS, EYES OPEN TO VOICE, NO RESPONSE VERBALLY, TRACH COLLAR ON PLACE 40 PERCENT, SUCTION PERFORMED, MEDICATIONS ADMINISTERED VIA PEG TUBE AND IV MEDICATIONS INFUSING, I/D WOUND DRESSING SATURATED AND ASSISTED MD ON DRESSING CHANGE AND PACKING THE WOUND WITH 2X2, PATIENT HAD A LARGE YELLOW DIARRHEA BOWEL MOVEMENT, NO FURTHER NEEDS AT THIS TIME, LESLIE PLATA
[2020-06-09 17:41] VITALS: BP 104/50
--- NOTE | 2020-06-09 19:44 | NUR ---
RECIEVED UP IN BED WITH EYS OPEN AND TV ON. ALERT AND ORITNED X4. UP AD JOJO. IV TO LT AC WITH NS AT 125CC/HR. DENIES ANY NEEDS AT THIS TIME.
--- NOTE | 2020-06-09 19:48 | NUR ---
RECIEVED LAYING IN BED WITH EYE CLOSED. NO RESPONSIVE TO VERBAL STIMULI. NEPHRO INFUSING AT 50CC/HR VIA PEG TUBE. IJ TO LEFT SIDEWITH NS INFUSING AT TKO. TRACH CUFF IN PLACE AT 40%. F/C INTACT WITH YELLOW URINE DRAINING TO BEDSIDE DRAINAGE BAG. SCD'S AND BOOTS IN PLACE. NO S/S OF DISTRESS OBSERVED.
--- NOTE | 2020-06-09 22:25 | NUR ---
CONT TO RECIEVE DIALYSIS. WILL GIVE NEDICATIONS WHEN FINISHED WITH DIALYSIS. DIALYSIS NURSE REPORTS B/P DROPED AND HAD TO STOP THEN RESTART.
[2020-06-10 00:05] VITALS: BP 101/42
[2020-06-10 05:05] VITALS: BP 97/42
[2020-06-10 08:00] VITALS: BP 109/54
[2020-06-10 11:00] VITALS: BP 101/56
--- NOTE | 2020-06-10 11:28 | OP ---
PATIENT NAME: SERGE DURHAM MEDICAL RECORD: [id number] :52 LOCATION:D.M2 D.2119 ADMISSION DATE:05/28/20 SURGEON: MAURILIO STREETER MD DATE OF OPERATION: 06/06/2020 PREOPERATIVE DIAGNOSES: 1. Left lateral thigh abscess. 2. Respiratory failure. 3. Sepsis. 4. Bacteremia. 5. Quadriplegic. 6. Critical illness myopathy. POSTOPERATIVE DIAGNOSES: 1. Left lateral thigh abscess. 2. Respiratory failure. 3. Sepsis. 4. Bacteremia. 5. Quadriplegic. 6. Critical illness myopathy. PROCEDURE: I&D of left lateral thigh. SURGEON: Maurilio Streeter MD REPORT OF PROCEDURE: The patient's left thigh was prepped and draped in sterile fashion. A 10 mL of 1% lidocaine with epinephrine was infused into the surrounding tissues. A needle was used to penetrate into a purulent pocket. Some of this fluid was sent off for culture. A #11 blade was used to make a longitudinal incision overlying the abscess pocket and there was a massive spillage of purulent fluid, which was under pressure. We pushed out as much of this fluid as possible and then irrigated the wound bed with peroxide and saline solution. I then packed the wound with an open 4x4 dipped in peroxide and covered the thigh with 4 x 4s and tape. COMPLICATIONS: None. CONDITION: Stable. ANESTHESIA: Local. BLOOD LOSS: 30 mL. PROCEDURE: Done at the bedside. TRANSINT:[id number] Voice Confirmation ID: [id number] DOCUMENT ID: [id number] OPERATIVE REPORT [id number] SERGE DURHAM MAURILIO STREETER MD at 1128 CC: [id number] DICTATION DATE: 06/06/20 1620 BRUSH WORKER: 06/07/20 0041 ADM IN [facility] [address] [place] [address]
--- NOTE | 2020-06-10 12:44 | NUR ---
DIALYSIS STARTED AT BS. B/P 103/56. WILL CONT. PLAN OF CARE.
[2020-06-10 15:00] VITALS: BP 115/45
--- NOTE | 2020-06-10 15:59 | NUR ---
ALYSSA COMPLETED. B/P /46. WILL CONT TO MONITOR.
--- NOTE | 2020-06-10 20:01 | NUR ---
RECIEVED BEDSIDE SHIFT REPORT. LAYING IN BED WITH EYES . OPENS EYES WITH VERBAL STINULI. UNABLE TO ANSWER QUESTIONS AND DOES NOT ACKNOWLEDGE ANYONE. CONT ON TUBE FEEDING WITIH FLUSHS. REMAINS NPO AND ALL MEDS VIA PEG TUBE OR IV. NO S/S OF DISTREE OBSERVED.
[2020-06-10 22:31] VITALS: BP 97/41
[2020-06-11] VITALS (46 sets, daily range): BP systolic 82–135; BP diastolic 32–96
[2020-06-11 08:20] LABS: ANION GAP 10.6 mmol/L (8-16); CALCIUM 8.8 mg/dL (8.5-10.1); CARBON DIOXIDE 30.7 mmol/L (21.0-32.0); CREATININE - SERUM 3.8 mg/dL (0.6-1.3); POTASSIUM - SERUM 4.3 mmol/L (3.5-5.1)
[2020-06-11 08:22] LABS: BASOPHILS 0.2 % (0-2); EOSINOPHILS 1.3 % (0-7); HEMATOCRIT 27.2 % (42.0-54.0); HEMOGLOBIN 8.3 g/dL (13.5-17.5); IMMATURE GRANULOCYTES 0.4 % (0-5); LYMPHOCYTE ABS# 1.61 10x3/uL (1.32-3.57); LYMPHOCYTES 14.2 % (15-50); MCH 25.3 pg (26.0-34.0); MCHC 30.5 g/dL (31.0-37.0); MCV 82.9 fL (80.0-100.0); MEAN PLATELET VOLUME 10.7 fL (7.4-10.4); MONOCYTES 8.8 % (2-11); NEUTROPHILS 75.1 % (40-80); PLATELET COUNT 163 10x3/uL (130-400); RBC 3.28 10x6/uL (4.20-6.10); RDW 20.6 % (11.5-14.5); WBC 11.3 10x3/uL (4.8-10.8)
--- NOTE | 2020-06-11 09:55 | NUR ---
HYPOTENSIVE THIS AM WITH SBP IN TH 70'S.. SHAHIDA RUANON FOR RENAL MD NOTIFIED. LASIX AND SOTOLOL PUT ON HOLD. DRSG CHANGED TO LEFT THIGH WITH PURULENT DRAINAGE NOTED. REPORT CALLED TO ICU. FAMILY AND DR. GARCIA NOTIFIED. TRANSFERED TO 2306 BY BED.
--- NOTE | 2020-06-11 12:07 | NUR ---
Nutrition Reassessment/Follow-up: Transferred to ICU for hypotension. No HD today 2/2 BP. Noted plans for KALANI tomorrow. Receiving Nepro @ 50 mL/hr at time of visit this AM prior to move. Diet: Nepro @ 50 mL/hr No new wt; last wt: 300# (05/29) Labs noted: K+ 4.3, Glu 126 Meds noted: Florajen, Miralax, Protonix, Albumin, NS @ 125 -Nutrition needs unchanged since last reassessment; no new wt available. -TF as tolerated. -Nepro @ 50 mL/hr provides 2160 kcal (76-89% est needs) & 97 g protein (92- 102%) daily. -Need new wt. -RD follow-up: 06/15
--- NOTE | 2020-06-11 18:51 | NUR ---
PT FAMILY AT BEDSIDE AND REPORTS PT FACIAL GRIMMACING AND REQUESTS SOMETHING FOR PAIN FOR HIM. I ASKED PT IF HE WAS IN PAIN AND HE SHOOK HEAD YES. DR SANDERS CALLED AND ORDER GIVEN FOR MORPHINE 4 MG Q 4 HR NEEDED FOR PAIN.
[2020-06-12] VITALS (43 sets, daily range): BP systolic 90–135; BP diastolic 33–65
[2020-06-12 05:53] LABS: BASOPHILS 0.2 % (0-2); EOSINOPHILS 1.8 % (0-7); HEMATOCRIT 25.1 % (42.0-54.0); HEMOGLOBIN 7.7 g/dL (13.5-17.5); IMMATURE GRANULOCYTES 0.4 % (0-5); LYMPHOCYTES 14.1 % (15-50); MCH 25.5 pg (26.0-34.0); MCHC 30.7 g/dL (31.0-37.0); MCV 83.1 fL (80.0-100.0); MEAN PLATELET VOLUME 11.1 fL (7.4-10.4); MONOCYTES 8.8 % (2-11); NEUTROPHIL ABS# 8.49 10x3/uL (1.78-5.38); NEUTROPHILS 74.7 % (40-80); PLATELET COUNT 160 10x3/uL (130-400); RBC 3.02 10x6/uL (4.20-6.10); RDW 20.4 % (11.5-14.5); WBC 11.4 10x3/uL (4.8-10.8)
[2020-06-12 06:07] LABS: ALBUMIN 2.8 g/dL (3.4-5.0); BILIRUBIN - TOTAL 0.51 mg/dL (0.2-1.3); CALCIUM 8.8 mg/dL (8.5-10.1); CREATININE - SERUM 4.4 mg/dL (0.6-1.3); MAGNESIUM - SERUM 2.1 mg/dL (1.8-2.4); PHOSPHOROUS 4.3 mg/dL (2.5-4.9); PROTEIN - SERUM 6.3 g/dL (6.4-8.2)
--- NOTE | 2020-06-12 08:15 | NUR ---
SUCTIONED PT VIA TRACH. COPIOUS AMOUT OF THICK YELLOW SECRETIONS/SPUTUM NOTED.
--- NOTE | 2020-06-12 09:00 | NUR ---
DR STREETER AT BEDSIDE AND ASSESSED L OUTER THIGH INCISION FROM PREVIOUS I&D. DRESSING CHANGED PER DR STREETER. INFORMED DR STREETER THAT PT ALSO HAS A CHRONIC PRESSURE WOUND TO BUTTOCK AND DR WEAVER REQUESTED SURGERY EVAL FOR POSS DEBRIDEMENT.
--- NOTE | 2020-06-12 13:00 | NUR ---
DIALYSIS AT BEDSIDE. PT STABLE AT PRESENT TIME.
--- NOTE | 2020-06-12 16:42 | NUR ---
WOUND CARE PROVIDED AND L LATERAL THIGH WOUND PACKED AND DRESSING CHNAGED PER ORDER. PRN PAIN MED GIVEN
[2020-06-13] VITALS (65 sets, daily range): BP systolic 101–136; BP diastolic 39–73
[2020-06-13 04:35] LABS: BASOPHILS 0.2 % (0-2); EOSINOPHILS 2.7 % (0-7); HEMATOCRIT 24.3 % (42.0-54.0); IMMATURE GRANULOCYTES 0.4 % (0-5); LYMPHOCYTE ABS# 1.69 10x3/uL (1.32-3.57); LYMPHOCYTES 15.4 % (15-50); MCH 25.8 pg (26.0-34.0); MCHC 30.9 g/dL (31.0-37.0); MCV 83.5 fL (80.0-100.0); MEAN PLATELET VOLUME 9.5 fL (7.4-10.4); NEUTROPHIL ABS# 8.02 10x3/uL (1.78-5.38); NEUTROPHILS 73.3 % (40-80); PLATELET COUNT 175 10x3/uL (130-400); RBC 2.91 10x6/uL (4.20-6.10); RDW 20.2 % (11.5-14.5)
[2020-06-13 04:36] LABS: HEMOGLOBIN 7.5 g/dL (13.5-17.5)
[2020-06-13 04:48] LABS: ANION GAP 10.3 mmol/L (8-16); CALCIUM 8.5 mg/dL (8.5-10.1); CARBON DIOXIDE 28.6 mmol/L (21.0-32.0); CREATININE - SERUM 3.9 mg/dL (0.6-1.3); POTASSIUM - SERUM 3.9 mmol/L (3.5-5.1)
--- NOTE | 2020-06-13 07:11 | NUR ---
Patient received bath and left thigh dressing was changed. Wound repacked. Very tender to touch.
--- NOTE | 2020-06-13 10:40 | NUR ---
DR SHI NOTIFIED OF CONSULT FOR SURGERY. DR COLEMAN CONCERNED OF ULCER TO BACK SIDE BUTTOCK AREA.
[2020-06-14] VITALS (93 sets, daily range): BP systolic 91–126; BP diastolic 32–80
[2020-06-14 04:50] LABS: BASOPHILS 0.1 % (0-2); EOSINOPHILS 2.3 % (0-7); HEMATOCRIT 24.2 % (42.0-54.0); IMMATURE GRANULOCYTES 0.3 % (0-5); LYMPHOCYTE ABS# 1.72 10x3/uL (1.32-3.57); LYMPHOCYTES 13.4 % (15-50); MCH 25.2 pg (26.0-34.0); MCHC 30.2 g/dL (31.0-37.0); MCV 83.4 fL (80.0-100.0); MEAN PLATELET VOLUME 10.2 fL (7.4-10.4); MONOCYTES 9.4 % (2-11); NEUTROPHIL ABS# 9.54 10x3/uL (1.78-5.38); NEUTROPHILS 74.5 % (40-80); PLATELET COUNT 207 10x3/uL (130-400); RDW 20.3 % (11.5-14.5); WBC 12.8 10x3/uL (4.8-10.8)
[2020-06-14 04:57] LABS: HEMOGLOBIN 7.3 g/dL (13.5-17.5)
[2020-06-14 05:12] LABS: ALBUMIN 2.7 g/dL (3.4-5.0); BILIRUBIN - TOTAL 0.55 mg/dL (0.2-1.3); CALCIUM 8.7 mg/dL (8.5-10.1); CARBON DIOXIDE 29.9 mmol/L (21.0-32.0); CREATININE - SERUM 4.6 mg/dL (0.6-1.3); POTASSIUM - SERUM 3.9 mmol/L (3.5-5.1); PROTEIN - SERUM 6.2 g/dL (6.4-8.2); VANCOMYCIN - RANDOM 24.2 ug/mL (10.0-20.0)
--- NOTE | 2020-06-14 17:01 | NUR ---
I have reviewed this patient and I concur with the Shift Assessment completed by the Licensed Practical Nurse today this shift.
[2020-06-15] VITALS (57 sets, daily range): BP systolic 80–178; BP diastolic 5–84
--- NOTE | 2020-06-15 05:30 | NUR ---
DRESSING ON LEFT LEG CHANGED
--- NOTE | 2020-06-15 05:38 | NUR ---
I, MARK LION, AGREE WITH THE CONSULTING SOFTWARE ENGINEER'S ASSESSMENT AND ALL IT ENTAILS.
[2020-06-15 06:01] LABS: ALBUMIN 2.9 g/dL (3.4-5.0); ANION GAP 9.5 mmol/L (8-16); BASOPHILS 0.1 % (0-2); BILIRUBIN - TOTAL 0.52 mg/dL (0.2-1.3); CARBON DIOXIDE 28.5 mmol/L (21.0-32.0); CREATININE - SERUM 5.1 mg/dL (0.6-1.3); EOSINOPHILS 2.8 % (0-7); HEMATOCRIT 23.5 % (42.0-54.0); IMMATURE GRANULOCYTES 0.4 % (0-5); LYMPHOCYTES 11.8 % (15-50); MAGNESIUM - SERUM 2.2 mg/dL (1.8-2.4); MCH 25.7 pg (26.0-34.0); MCHC 30.6 g/dL (31.0-37.0); MCV 83.9 fL (80.0-100.0); MEAN PLATELET VOLUME 9.9 fL (7.4-10.4); MONOCYTES 7.8 % (2-11); NEUTROPHILS 77.1 % (40-80); PHOSPHOROUS 5.7 mg/dL (2.5-4.9); PLATELET COUNT 205 10x3/uL (130-400); PROTEIN - SERUM 6.5 g/dL (6.4-8.2); RDW 20.6 % (11.5-14.5); WBC 12.7 10x3/uL (4.8-10.8)
[2020-06-15 06:39] LABS: HEMOGLOBIN 7.2 g/dL (13.5-17.5)
--- NOTE | 2020-06-15 07:08 | NUR ---
REPORT RECIEVED. CARE OF PATIENT ASSUMED. SEELaurent PALACIOS FOR ASSESSMENT FINDINGS.
--- NOTE | 2020-06-15 07:15 | NUR ---
DR. TORRES AT BEDSIDE. NOTIFIED OF H&H. ORDERS FOR UNIT OF BLOOD AFTER SURGERY TODAY RECIEVED.
--- NOTE | 2020-06-15 10:00 | NUR ---
PT BACK FROM SURGERY. OPENS EYES TO VERBAL STIMULI. PUPILS REACTIVE AND BRISK. NONVERBAL AT THIS TIME. ANESTHESIA STATED HE NEEDED TO BE ON THE VENTILLATOR FOR THE TIME BEING DUE TO HIS DECREASED RESPIRATIONS. RESPIRATORY THERAPIST AT BEDSIDE. LEVO INFUSING @ 6MCG. FOLLOWING BP WITH NEW LEFT WRIST ART LINE. BP 147/90. TITRATED LEVO DOWN AND TURNED OFF. NEW PRESSURE LINES FOR ART LINE. ABDOMEN IS DISTENDED. NEW COLOSTOMY NOTED TO LLQ, SCANT BRIGHT RED BLOOD IN COLOSTOMY BAG. WOUND TO LEFT THIGH HAS WOUND VAC. WORKING AT THIS TIME. SANGUINOUS DRAINAGE NOTED. BED IN LOWEST POSITION. BED RAILS UP X2.
--- NOTE | 2020-06-15 10:24 | NUR ---
Nutrition follow-up: discussed during IDT team rounds To surgery today for wound debridement, diverting colostomy. NPO TF of Nepro @ 50 ml/hr on hold Labs reviewed Wt: 300# RDN will follow-up pts progress: 06/17/20
--- NOTE | 2020-06-15 15:36 | NUR ---
I have reviewed this patient and I concur with the Shift Assessment completed by the Licensed Practical Nurse today this shift.
--- NOTE | 2020-06-15 15:48 | NUR ---
PATIENT WAS PLACED ON VENTILATOR AFTER SURGERY. STARTED ON CPAP TRIAL 10//40% FROM 1030 TO 1540 AND ABGS WERE DRAWN. PATIENT WAS SUCCESSFUL WITH CPAP TRIAL WITH RR 20 HR 67 SPO2 100% RSBI 47. PATIENT TAKEN OFF VENTILATOR AND PLACED ON 40% TRACH COLLAR AT 1545. HR 65 RR 18 SPO2 97% UPON LEAVING ROOM.
--- NOTE | 2020-06-15 16:00 | TEE ---
PATIENT:SERGE DURHAM MEDICAL RECORD: [id number] LOCATION:[facility] AGE OF PATIENT: 69 ADMISSION DATE: 05/28/20 SEX: M REFERRING PHYSICIAN: INTERPRETING PHYSICIAN: MERCEDES ELIZABETH MD TRANSESOPHAGEAL ECHOCARDIOGRAM Date: 06/12/20 KALANI CHARGE Y INDICATIONS: AFIB,ACUTE RESP FAILURE,ANEMIA,BRADYCARDI A PREMEDICATIONS: PATIENT'S RESPONSE PROCEDURE DOPPLER MEASUREMENTS: LVIT LA PA 90 RA LVOT 99 RVOT 71 Asc. Ao 159 AV Gradient Peak 10.1 AV Mean 5.3 AV Area 1.6 MV Gradient Peak 5.1 MV Mean 2.9 MV Area INTERPRETATION: Doppler: 2-D: COLOR FLOW DOPPLER NORMAL SALINE STUDY: MISCELLANOUS: DIAGNOSIS: PLAN: Access Coordinator:Rosa M Magaña Inspector Metal Fabricating: Rosa M GONZALES COMMENTS: DATE OF SERVICE: 06/12/2020 PROCEDURE: Transesophageal note. DESCRIPTION OF PROCEDURE: After general sedation via TIVA via anesthesia, transesophageal Omniplane probe was placed in the distal esophagus, proximal stomach without difficulty. TRANSESOPHAGEAL ECHOCARDIOGRAM REPORT [id number] SERGE DURHAM FINDINGS: LVH is present. LV internal dimensions were normal. Wall motion is normal. EF is greater than or equal to 55%. Aortic valve was tricuspid with good valve excursion. No evidence of vegetation. Left atrium appears normal. Left atrial appendage is well visualized with good contractility. Mitral valve appears normal with no evidence of vegetation and mild MR. Right-sided chambers appear grossly normal. Mild TR. Tricuspid valve was well visualized with no evidence of vegetation and no more than mild MR. At the end of the procedure, transesophageal Omniplane probe was turned posteriorly and this showed minimal atherosclerotic debris in the ascending aorta. During the procedure, the patient was monitored continuously with pulse oximetry, telemetry, noninvasive blood pressure monitoring. FINAL IMPRESSION: No evidence of vegetation in all 4 cardiac valves. TRANSINT:[id number] Voice Confirmation ID: [id number] DOCUMENT ID: [id number] at 1600 CC: [id number] DICTATION DATE: 06/12/20 1004 MULE OPERATOR: 06/13/20 0155 ADM IN [id number] [place] [address]
--- NOTE | 2020-06-15 16:23 | NUR ---
OK TO START TUBE FEEDING BACK PER DR. SANFORD
[2020-06-16] VITALS (64 sets, daily range): BP systolic 74–170; BP diastolic 3–533
--- NOTE | 2020-06-16 02:25 | NUR ---
FLUID FILLED BLISTER NOTED ABOVE THE WOUND VAC SITE ON LEFT UPPER THIGH.
--- NOTE | 2020-06-16 07:20 | NUR ---
PT RESTING COMFORTABLE, ORAL CARE PROVIDED, PT SHAKES HEAD YES OR NO WHEN ASKED QUESTIONS, POSITIONED FOR COMFORT, WILL MONITOR
[2020-06-16 08:39] LABS: ANION GAP 15.5 mmol/L (8-16); CALCIUM 8.4 mg/dL (8.5-10.1); CARBON DIOXIDE 22.8 mmol/L (21.0-32.0); POTASSIUM - SERUM 4.3 mmol/L (3.5-5.1)
--- NOTE | 2020-06-16 09:00 | NUR ---
DR EMMANUEL HERE SEEING PATIENT
[2020-06-16 09:43] LABS: BASOPHILS 0.1 % (0-2); EOSINOPHILS 1.8 % (0-7); HEMATOCRIT 26.2 % (42.0-54.0); HEMOGLOBIN 8.3 g/dL (13.5-17.5); IMMATURE GRANULOCYTES 0.3 % (0-5); LYMPHOCYTES 9.2 % (15-50); MCH 26.4 pg (26.0-34.0); MCHC 31.7 g/dL (31.0-37.0); MCV 83.4 fL (80.0-100.0); MEAN PLATELET VOLUME 9.6 fL (7.4-10.4); MONOCYTES 9.1 % (2-11); NEUTROPHIL ABS# 12.13 10x3/uL (1.78-5.38); NEUTROPHILS 79.5 % (40-80); PLATELET COUNT 213 10x3/uL (130-400); RBC 3.14 10x6/uL (4.20-6.10); RDW 19.4 % (11.5-14.5); WBC 15.3 10x3/uL (4.8-10.8)
--- NOTE | 2020-06-16 14:05 | NUR ---
PT STARTED ON DILAYSIS AT THIS TIME
--- NOTE | 2020-06-16 17:52 | NUR ---
COMPLETE BATH GIVEN AND LINENS CHANGED, PT REPOSITIONED FOR COMFORT, WILL MONITOR
--- NOTE | 2020-06-16 17:54 | NUR ---
TUBE FEEDS STARTED AT THIS TIME, NEPRO AT 20ML/HR INFUSING WITH EASE
[2020-06-17] VITALS (12 sets, daily range): BP systolic 124–163; BP diastolic 47–63
[2020-06-17 07:51] LABS: BASOPHILS 0.1 % (0-2); EOSINOPHILS 1.5 % (0-7); HEMATOCRIT 28.6 % (42.0-54.0); HEMOGLOBIN 9.2 g/dL (13.5-17.5); IMMATURE GRANULOCYTES 0.4 % (0-5); LYMPHOCYTE ABS# 1.43 10x3/uL (1.32-3.57); LYMPHOCYTES 8.3 % (15-50); MCH 26.8 pg (26.0-34.0); MCHC 32.2 g/dL (31.0-37.0); MCV 83.4 fL (80.0-100.0); MEAN PLATELET VOLUME 9.5 fL (7.4-10.4); MONOCYTES 10.7 % (2-11); NEUTROPHIL ABS# 13.64 10x3/uL (1.78-5.38); PLATELET COUNT 174 10x3/uL (130-400); RBC 3.43 10x6/uL (4.20-6.10); RDW 18.7 % (11.5-14.5); WBC 17.3 10x3/uL (4.8-10.8)
[2020-06-17 08:16] LABS: ANION GAP 15.8 mmol/L (8-16); CALCIUM 9.2 mg/dL (8.5-10.1); CARBON DIOXIDE 24.9 mmol/L (21.0-32.0); CREATININE - SERUM 5.4 mg/dL (0.6-1.3); POTASSIUM - SERUM 3.7 mmol/L (3.5-5.1)
--- NOTE | 2020-06-17 08:37 | NUR ---
Nutrition reassessment: Pt s/p I&D of wounds; diverting colostomy Nepro infusing @ 20ml/hr via PEG tube with goal rate of 50 ml/hr Labs reviewed: PO4: 4.9 - trending up Last wt: 300# (05/29) Nutrition diangonsis continues as inadequate energy intake R/T wounds with surgery AEB pts TF has been off or decreased rate for surgery. Goals: Nepro increased to goal rate of 50 ml/hr today Interventions: Please get a current wt to chart RDN follow-up: 06/18/20
--- NOTE | 2020-06-17 09:15 | NUR ---
DR EMMANUEL HERE SEEING PATIENT
--- NOTE | 2020-06-17 10:00 | NUR ---
COLOSTOMY BAG CHANGED AT THIS TIME
--- NOTE | 2020-06-17 11:00 | NUR ---
SANDOVAL CATHETER DC'D AT THIS TIME
--- NOTE | 2020-06-17 11:00 | NUR ---
NAZANIN SONG, GAUZE DRESSING APLLIED TO WRIST
--- NOTE | 2020-06-17 11:35 | NUR ---
REPORT CALLED TO AYAD CUEVAS ON [facility]
--- NOTE | 2020-06-17 12:05 | NUR ---
PT TRANSFERRED TO [facility]IA [facility] AT [place], NO ACUTE DISTRESS NOTED AT THIS TIME
--- NOTE | 2020-06-17 14:46 | NUR ---
RECEIVE SHIFT REPORT. RESTING IN BED WITH EYES OPEN. NONVERBAL. DROPLET PRECAUTIONS IN PLACE. WILL CONTINUE POC AND SAFETY PRECAUTIONS.
--- NOTE | 2020-06-17 15:42 | NUR ---
PATIENT GETTING DIALYSIS IN ROOM.
--- NOTE | 2020-06-17 19:30 | NUR ---
CHECKED RESIDUAL, 45ML. INCREASED TO 40ML/HR. WILL CONTINUE TO MONITOR.
--- NOTE | 2020-06-17 19:30 | NUR ---
CHECKED RESIDUAL, 130ML, INCREASED FEED TO 40ML/HR. WILL CONTINUE TO MONITOR.
--- NOTE | 2020-06-17 19:45 | NUR ---
RECEIVED BEDSIDE REPORT. PT LAYING IN BED, CONFUSED, AROUSES TO VOICE. TRIALYSIS CATH TO LEFT IJ, PATENT AND S/L, NO REDNESS OR SWELLING. TRACH PRESENT, COLLAR IN PLACE AT 35%. G TUBE TO MID ABD, PATENT AND INFUSING. COLOSTOMY TO LOWER LEFT QUAD. WOUND TO LEFT THIGH, WOUND VAC IN PLACE, PATENT AND DRAINING. WOUND ON COCYX DRSG C/D/I. LEFT HEEL WOUND, ESCHAR PRESENT, HEEL PROTECTORS ON. SKIN TEAR TO RIGHT SHOULDER, MEPILEX C/D/I. BED LOW, ALARM ON, CL IN REACH. WILL CONTINUE TO MONITOR.
--- NOTE | 2020-06-17 21:30 | NUR ---
TURNED PT TO LEFT SIDE, WILL CONTINUE TO MONITOR.
[2020-06-18] VITALS: BP 102/51
--- NOTE | 2020-06-18 01:30 | NUR ---
CHECKED RESIDUAL 35ML, INCREASED FEED TO 50ML/HR, SET FLUSH Q1H, 15ML. WILL CONTINUE TO MONITOR.
[2020-06-18 04:00] VITALS: BP 110/46
[2020-06-18 09:11] VITALS: BP 109/52
--- NOTE | 2020-06-18 12:16 | NUR ---
Nutrition follow-up: Pt s/p thigh wound debridement with wound vac placement; diverting colostomy Nepro infusing @ 50 ml/hr with 15 ml H2O flush q hour Labs reviewed Receiving dialysis; renal physicians feels renal function to recover. Wt: 300# Recommendations: Due to wound, recommend increasing TF to goal rate of 60 ml/hr to provide: 2600 kcal, 115 g protein Follow-up: 06/22/20
--- NOTE | 2020-06-18 12:38 | NUR ---
PT SUCTIONED. RESP CULTURE COLLECTED. DIALYSIS IN ROOM. COLOSTOMY BAG CHANGED I FOUND IT TO BE LEAKING. CL IN REACH. WCTM
[2020-06-18 17:07] VITALS: BP 113/54
--- NOTE | 2020-06-18 19:45 | NUR ---
RECEIVED BEDSIDE REPORT. PT LAYING IN BED, AROUSES TO VOICE, NON-VERBAL. NO DISTRESS NOTED. BED LOW, ALARM ON, CL IN REACH.
[2020-06-18 20:00] VITALS: BP 116/52
--- NOTE | 2020-06-18 20:45 | NUR ---
PT GRIMACING IN PAIN, ADMIN PAIN MEDS VIA PEG TUBE. TURNED PT TO RIGHT SIDE, APPLIED WEDGES. SUCTIONED TRACH. PT APPEARS TO BE IN LESS DISTRESS. WILL CONTINUE TO MONITOR.
[2020-06-19] VITALS: BP 118/56
--- NOTE | 2020-06-19 01:00 | NUR ---
SUCTIONED PT, TOLERATED WELL. WILL CONTINUE TO MONITOR.
--- NOTE | 2020-06-19 01:46 | NUR ---
APPLIED CONDOM CATH TO PENIS, TOLERATED WELL. CHANGED FEEDING TUBING AND BAGS. WILL CONTINUE TO MONITOR.
--- NOTE | 2020-06-19 03:17 | NUR ---
PHOTOGRAPH EDITOR ASSISTED WITH FULL BED BATH. CHANGED DRSG TO G-TUBE, LEFT HEEL, AND COCCYX. SUCTIONED PT, TOLERATED WELL. BED LOW, ALARM ON, CL IN REACH.
[2020-06-19 04:00] VITALS: BP 121/50
[2020-06-19 06:45] LABS: HEMATOCRIT 28.3 % (42.0-54.0); LYMPHOCYTE ABS# 1.97 10x3/uL (1.32-3.57); MCH 26.8 pg (26.0-34.0); MCHC 31.8 g/dL (31.0-37.0); MCV 84.2 fL (80.0-100.0); MEAN PLATELET VOLUME 10.3 fL (7.4-10.4); NEUTROPHIL ABS# 10.67 10x3/uL (1.78-5.38); PLATELET COUNT 168 10x3/uL (130-400); RBC 3.36 10x6/uL (4.20-6.10); RDW 18.9 % (11.5-14.5); WBC 15.2 10x3/uL (4.8-10.8)
[2020-06-19 07:12] LABS: ANION GAP 15.3 mmol/L (8-16); CALCIUM 8.8 mg/dL (8.5-10.1); CARBON DIOXIDE 27.9 mmol/L (21.0-32.0); CREATININE - SERUM 4.3 mg/dL (0.6-1.3); POTASSIUM - SERUM 3.2 mmol/L (3.5-5.1)
[2020-06-19 09:33] VITALS: BP 170/92
[2020-06-19 10:32] LABS: EOSINOPHILS 2 % (0-7); LYMPHOCYTES 5 % (15-50); MONOCYTES 13 % (2-11); NEUTROPHILS 75 % (40-80)
[2020-06-19 10:37] LABS: PLATELET ESTIMATE DECREASED
[2020-06-19 11:01] LABS: ANISOCYTOSIS OCC; ROULEAUX OCC
[2020-06-19 17:47] VITALS: BP 122/51
[2020-06-19 20:13] VITALS: BP 99/37
[2020-06-20 04:00] VITALS: BP 108/42
[2020-06-20 06:20] LABS: BASOPHILS 0.2 % (0-2); EOSINOPHILS 3.3 % (0-7); HEMATOCRIT 24.7 % (42.0-54.0); HEMOGLOBIN 7.7 g/dL (13.5-17.5); IMMATURE GRANULOCYTES 0.5 % (0-5); LYMPHOCYTE ABS# 1.89 10x3/uL (1.32-3.57); LYMPHOCYTES 15.5 % (15-50); MCH 26.5 pg (26.0-34.0); MCHC 31.2 g/dL (31.0-37.0); MCV 84.9 fL (80.0-100.0); MEAN PLATELET VOLUME 9.7 fL (7.4-10.4); MONOCYTES 16.9 % (2-11); NEUTROPHIL ABS# 7.74 10x3/uL (1.78-5.38); NEUTROPHILS 63.6 % (40-80); PLATELET COUNT 158 10x3/uL (130-400); RBC 2.91 10x6/uL (4.20-6.10); RDW 18.9 % (11.5-14.5); WBC 12.2 10x3/uL (4.8-10.8)
[2020-06-20 06:25] LABS: ANION GAP 11.5 mmol/L (8-16); CALCIUM 8.8 mg/dL (8.5-10.1); CARBON DIOXIDE 28.5 mmol/L (21.0-32.0); CREATININE - SERUM 4.2 mg/dL (0.6-1.3)
--- NOTE | 2020-06-20 07:21 | NUR ---
PATIENT REQUIRED SUCTIONING TOTAL OF 5 TIMES OVER NUCLEAR OPERATIONS SPECIALIST. COPIOUS PINK/BLOODY SECRETIONS. IS ABLE TO COUGH SOME OF THE SECRETIONS UP SPONTANEOUSLY. UNABLE TO FORM GOOD SEAL WITH COLOSTOMY CLIPS IN PLACE, COLOSTOMY SET CHANGED. WOUND TO RIGHT PINKIE CLEANED, DRESSED. WOUND VAC IN PLACE, FUNCTIONING, DRAINGING BLOODY SECRETIONS. PATIENT GRIMACING WHEN TURNING IN BED, MEDICATED PER ORDERS. FORMULA FEEDS RUNNING VA GTUBE.
[2020-06-20 08:36] VITALS: BP 109/43
[2020-06-20 09:04] LABS: % SATURATION 18 % (15-55); IRON 11 ug/dl (35-150); TOTAL IRON BIND CAPACITY 58 ug/dl (260-445)
[2020-06-20 09:10] LABS: UNSAT IRON BIND CAPACITY 47 ug/dl (150-375)
--- NOTE | 2020-06-20 10:00 | NUR ---
ASSESSMENT PER FLOW SHEET. PATIENT IS WITHOUT DISTRESS. PATIENT IS NON VERBAL ,BUT OPENS EYES WHEN SPOKEN TO.ISOLATION MAINTAINED.MONITOR FOR NEEDS.
[2020-06-20 12:39] VITALS: BP 109/43
[2020-06-20 16:51] VITALS: BP 134/61
--- NOTE | 2020-06-20 17:39 | NUR ---
PATIENT'S DIALYSIS CATHETER DOES NOT FUNCTION PROPERLY. RECIEVED ORDER FROM [employer] TO ACCTIVASE BOTH THE VENOUS AND ARTERIAL LINES OF THE CATH. ACTIVASE WORKED ON THE ARTERIAL SIDE BUT NOT THE VENOUS SIDE AFTER ONE HOUR OF DWELLING IN BOTH LINES. INFORMED [employer]SM[employer] THAT VENOUS LUMEN STILL WAS NOT WORKING AND DUE TO PATIENT'S HEPARIN ALLERGY COULD NOT FLUSH THE VENOUS LINE, SO PATIENT DID NOT RECIEVE DIALYSIS.
[2020-06-20 20:15] VITALS: BP 122/50
[2020-06-21 00:46] VITALS: BP 111/44
[2020-06-21 04:00] VITALS: BP 118/52
[2020-06-21 06:20] LABS: CALCIUM 9.1 mg/dL (8.5-10.1); CARBON DIOXIDE 27.9 mmol/L (21.0-32.0); CREATININE - SERUM 4.6 mg/dL (0.6-1.3)
[2020-06-21 06:40] LABS: POTASSIUM - SERUM 2.9 mmol/L (3.5-5.1)
[2020-06-21 07:12] LABS: BASOPHILS 0.2 % (0-2); EOSINOPHILS 3.7 % (0-7); HEMATOCRIT 24.4 % (42.0-54.0); IMMATURE GRANULOCYTES 0.4 % (0-5); LYMPHOCYTE ABS# 2.09 10x3/uL (1.32-3.57); LYMPHOCYTES 17.4 % (15-50); MCH 26.3 pg (26.0-34.0); MCHC 30.7 g/dL (31.0-37.0); MCV 85.6 fL (80.0-100.0); MEAN PLATELET VOLUME 9.7 fL (7.4-10.4); MONOCYTES 15.1 % (2-11); NEUTROPHIL ABS# 7.59 10x3/uL (1.78-5.38); NEUTROPHILS 63.2 % (40-80); PLATELET COUNT 165 10x3/uL (130-400); RBC 2.85 10x6/uL (4.20-6.10); RDW 18.7 % (11.5-14.5)
[2020-06-21 07:25] LABS: HEMOGLOBIN 7.5 g/dL (13.5-17.5)
--- NOTE | 2020-06-21 07:26 | NUR ---
SACRAL DRESSING CHANGED, MODERATE BLEEDING NOTED. WOUND TO RIGHT PINKIE CLEANED AND DRESSED. REQUIRING FREQUENT SUCTIONING FOR THICK SECRETIONS. MEDICATED FOR PAIN. TRIALYSIS CATHETER FLUSHES, NO BLOOD RETURN NOTED. PEG PATENT, BAG CHANGED.
[2020-06-21 09:19] VITALS: BP 128/52
[2020-06-21 13:35] VITALS: BP 138/56
[2020-06-21 17:56] VITALS: BP 117/50
[2020-06-21 20:00] VITALS: BP 117/52
--- NOTE | 2020-06-21 21:19 | NUR ---
COLOSTOMY LEAKING, SET CHANGED. FACIAL GRIMACING NOTE, MEDICATED PER ORDERS. SUCTIONED, STILL PRODUCING COPIOUS THICK SECRETIONS. REPOSITIONED FOR COMFORT.
--- NOTE | 2020-06-21 22:53 | NUR ---
DRESSING TO RIGHT PINKIE, MODERATE PURULENT DRAINAGE NOTED. BILATERAL HEELS DRESSINGS CHANGED, NO DRAINAGE NOTED. PEG DRESSING CHANGED, SMALL BLOODY DRAINAGE NOTED. FEEDING COMPLETE, PEG FLUSHED AND CLAMPED.
[2020-06-22] VITALS (10 sets, daily range): BP systolic 88–142; BP diastolic 40–76
--- NOTE | 2020-06-22 03:38 | NUR ---
DRESSING TO SACRUM CHANGED WITH CHG BEDBATH. MODERATE BLEEDING NOTED. COLOSTOMY SET LEAKING, CHANGED. SUCTIONED TRACH.
--- NOTE | 2020-06-22 08:31 | NUR ---
ASSESSMENT PER FLOW SHEET. RESPIRATORY CALLED FOR DEEP SUCTION. PRE MEDS ORDERED.CONSENT ON CHART AT 0724 THIS AM, PERMISSION FROM POA AND SISTER KEON OSBORNE, WITNESSED BY AUGUST BARNEY LPN VIA PHONE CONSENTS. NPO SINCE MID NIGHT.ISOLATION MAINTAINED.HEPI CLENS BATH COMPLETED BY [employer] SUPERINTENDENT.
[2020-06-22 08:40] LABS: BASOPHILS 0.2 % (0-2); EOSINOPHILS 3.5 % (0-7); HEMATOCRIT 27.4 % (42.0-54.0); HEMOGLOBIN 8.4 g/dL (13.5-17.5); IMMATURE GRANULOCYTES 0.5 % (0-5); LYMPHOCYTE ABS# 1.94 10x3/uL (1.32-3.57); MCH 26.2 pg (26.0-34.0); MCHC 30.7 g/dL (31.0-37.0); MCV 85.4 fL (80.0-100.0); MEAN PLATELET VOLUME 9.5 fL (7.4-10.4); MONOCYTES 15.6 % (2-11); NEUTROPHIL ABS# 8.45 10x3/uL (1.78-5.38); NEUTROPHILS 65.2 % (40-80); PLATELET COUNT 166 10x3/uL (130-400); RBC 3.21 10x6/uL (4.20-6.10); RDW 18.6 % (11.5-14.5)
[2020-06-22 08:49] LABS: ANION GAP 12.4 mmol/L (8-16); CALCIUM 9.8 mg/dL (8.5-10.1); CARBON DIOXIDE 26.7 mmol/L (21.0-32.0); CREATININE - SERUM 4.6 mg/dL (0.6-1.3)
[2020-06-22 08:50] LABS: POTASSIUM - SERUM 4.1 mmol/L (3.5-5.1)
--- NOTE | 2020-06-22 10:03 | NUR ---
TO OR VIA BED
--- NOTE | 2020-06-22 12:21 | NUR ---
Nutrition follow-up: In ICU post- hemposplit placement, wound debridement NPO for now Labs reviewed Wt: 300# Trach collar to vent post surgery Recommend restarting Nepro @ 50 ml/hr with increase to goal rate of 60 ml/hr to better meet pts nutritional needs. Follow-up: 06/24/20
--- NOTE | 2020-06-22 12:24 | NUR ---
PATIENT RECEIVED FROM OR. PLACED ON VENTILATOR ASSIST CONTROL VOLUME CONTROL 16/500//5/35%. HR 67 SPO2 100% RR 21
--- NOTE | 2020-06-22 12:41 | NUR ---
Recieved patient from surgery. Hooked to monitors and vent. VS stable. Will continue to monitor.
--- NOTE | 2020-06-22 18:53 | NUR ---
Arrived to the ICU to dialyze the patient. Upon arrival to the patient's room the patient had NS running through the line. The floor nurse assigned to the patient discontinued the NS and capped off the patient's line.Tried pulling 10ccs from the venous line but the line would not aspirate but would flush with force. Arterial side pulled adequately. During dialysis arterial pressure was -260 and venous was 300. TMP was 400. Stopped treatment and attempted to return blood but was unsuccessful. Disconnected the patient and a clot was removed along with the venous line. Called Dr. Neri and informed him that there was a clot in the venous line and he instructed us to flush the line forcefully and place activase in the line. Activase has been ordered and will be administered when recieved.
--- NOTE | 2020-06-22 21:00 | NUR ---
Requested spare trach to be placed at bedside from Mina WHITE. Ambubag present.
--- NOTE | 2020-06-22 21:30 | NUR ---
CATHFLO ASPIRATED FROM VENOUS AND ARTERIAL PORTS, ACCESS NEEDED FOR SCHEDULED MEDICATIONS AND PATIENT BECOMING HYPOTENSIVE MAY REQUIRE FLUIDS OR PRESSOR SO WILL CONTINUE TO MONITOR BP. 5ML ASPIRATED FROM BOTH PORTS, WITH BLOOD RETURNED. SOME RESISTANCE NOTED TO VENOUS PORT WITH ASPIRATION, FLUSHES EASILY. PORTS FLUSHED WITH 10ML NORMAL SALINE. IV LINE CONNECTED TO VENOUS PORT FOR INFUSION, NO RESISTANCE TO FLOW. NEPRO TUBEFEEDING RESUMED AT ORDERED RATE 50 ML/HR WITH FWF 15 ML/HR. PEG PATENT AND SECURE, NO RESIDUALS NOTED.
[2020-06-23] VITALS (37 sets, daily range): BP systolic 76–139; BP diastolic 35–93
[2020-06-23 04:55] LABS: BASOPHILS 0.3 % (0-2); EOSINOPHILS 2.8 % (0-7); HEMATOCRIT 24.6 % (42.0-54.0); IMMATURE GRANULOCYTES 0.6 % (0-5); LYMPHOCYTE ABS# 2.13 10x3/uL (1.32-3.57); MCH 26.1 pg (26.0-34.0); MCHC 30.5 g/dL (31.0-37.0); MCV 85.7 fL (80.0-100.0); MEAN PLATELET VOLUME 9.5 fL (7.4-10.4); MONOCYTES 15.1 % (2-11); NEUTROPHIL ABS# 8.69 10x3/uL (1.78-5.38); NEUTROPHILS 65.2 % (40-80); PLATELET COUNT 168 10x3/uL (130-400); RBC 2.87 10x6/uL (4.20-6.10); RDW 18.7 % (11.5-14.5); WBC 13.3 10x3/uL (4.8-10.8)
[2020-06-23 04:56] LABS: HEMOGLOBIN 7.5 g/dL (13.5-17.5)
[2020-06-23 05:08] LABS: ANION GAP 11.5 mmol/L (8-16); CALCIUM 9.8 mg/dL (8.5-10.1); CARBON DIOXIDE 26.9 mmol/L (21.0-32.0); CREATININE - SERUM 4.7 mg/dL (0.6-1.3); POTASSIUM - SERUM 4.4 mmol/L (3.5-5.1)
--- NOTE | 2020-06-23 06:19 | NUR ---
Shift summary: Patient with low blood pressure, Levophed initiated to maintain adequate MAP. Anxious, pulling at colostomy bag and removing trach tubing from trach. Reorientation and redirection given, does not acknowledge understanding or agreement regarding safety. Bilateral soft wrist restraints applied to maintain safety. Alert, follows commands but impulsive. Critical Hgb 7.5, Dr. Neri notified, no orders received. IVF infusing at venous port, flushes easily but resistance to aspiration.
--- NOTE | 2020-06-23 09:59 | NUR ---
PT PLACED ON ATC 35% PER DR. COLEMAN AT 1000. WILL LEAVE ON ATC 2 HOURS BID.
[2020-06-24] VITALS (10 sets, daily range): BP systolic 104–138; BP diastolic 57–87
--- NOTE | 2020-06-24 00:26 | NUR ---
Patient's colostomy bag has been changed as well as all linen while receiving bath. Patient has been frequently repositioned. PRN Lortab given due to facial expressions of pain. New external catheter placed.
[2020-06-24 04:25] LABS: BASOPHILS 0.3 % (0-2); EOSINOPHILS 4.6 % (0-7); HEMATOCRIT 23.1 % (42.0-54.0); IMMATURE GRANULOCYTES 0.7 % (0-5); LYMPHOCYTE ABS# 1.61 10x3/uL (1.32-3.57); LYMPHOCYTES 15.2 % (15-50); MCH 26.3 pg (26.0-34.0); MCHC 30.7 g/dL (31.0-37.0); MCV 85.6 fL (80.0-100.0); MEAN PLATELET VOLUME 9.6 fL (7.4-10.4); MONOCYTES 13.9 % (2-11); NEUTROPHIL ABS# 6.92 10x3/uL (1.78-5.38); NEUTROPHILS 65.3 % (40-80); RDW 18.5 % (11.5-14.5); WBC 10.6 10x3/uL (4.8-10.8)
[2020-06-24 04:29] LABS: HEMOGLOBIN 7.1 g/dL (13.5-17.5); PLATELET COUNT 133 10x3/uL (130-400)
[2020-06-24 04:36] LABS: CALCIUM 9.3 mg/dL (8.5-10.1); CARBON DIOXIDE 29.2 mmol/L (21.0-32.0); CREATININE - SERUM 3.8 mg/dL (0.6-1.3); PHOSPHOROUS 3.2 mg/dL (2.5-4.9); POTASSIUM - SERUM 4.2 mmol/L (3.5-5.1)
--- NOTE | 2020-06-24 06:12 | NUR ---
SPOKE TO DR. SANDERS AND NOTIFIED HER OF HGB OF 7.1. GAVE ORDERS TO RECHECK H&H IN 6HRS FROM LAST BLOOD DRAW. MAY POSSIBLY TRANSFUSE IF UNDER 7.
--- NOTE | 2020-06-24 10:00 | NUR ---
RESTRAINTS DC'D AT THIS TIME
[2020-06-24 10:22] LABS: HEMATOCRIT 24.5 % (42.0-54.0); HEMOGLOBIN 7.6 g/dL (13.5-17.5)
--- NOTE | 2020-06-24 12:13 | NUR ---
Nutrition follow-up: Pt sleeing; discussed during IDT team rounds Trach collar only Nepro infusing via PEG tube @ 60 ml/hr goal Labs reviewed Wt: 295# No dialysis today Pt tolerating TF @ goal rate RDN follow-up: 06/26/20
--- NOTE | 2020-06-24 18:34 | NUR ---
PATIENT ARRIVED TO FLOOR FROM ICU. VS STABLE. ALERT, NONVERBAL. CALL LIGHT IN REACH. DROPLET ISO IN PLACE. WILL CONTINUE POC AND SAFETY PRECAUTIONS.
--- NOTE | 2020-06-24 23:33 | NUR ---
REPORT RECEIVED, WILL CONT POC. PT UP IN BED, LISTENING TO TV. PTS COLOSTOMY BAG HAD BEEN LEAKING. CLEANED PT AND APPLIED NEW COLOSTOMY BAG. CLEANED SPUTUM FROM TRACH COLLAR.
[2020-06-25 03:18] VITALS: BP 125/52
[2020-06-25 06:22] LABS: ANION GAP 11.3 mmol/L (8-16); CARBON DIOXIDE 29.2 mmol/L (21.0-32.0); CREATININE - SERUM 3.5 mg/dL (0.6-1.3); POTASSIUM - SERUM 4.5 mmol/L (3.5-5.1)
[2020-06-25 06:41] LABS: BASOPHILS 0.3 % (0-2); EOSINOPHILS 4.6 % (0-7); IMMATURE GRANULOCYTES 0.7 % (0-5); LYMPHOCYTE ABS# 2.09 10x3/uL (1.32-3.57); LYMPHOCYTES 18.6 % (15-50); MCH 26.6 pg (26.0-34.0); MCHC 30.5 g/dL (31.0-37.0); MCV 87.3 fL (80.0-100.0); MEAN PLATELET VOLUME 10.7 fL (7.4-10.4); MONOCYTES 15.2 % (2-11); NEUTROPHIL ABS# 6.81 10x3/uL (1.78-5.38); NEUTROPHILS 60.6 % (40-80); RBC 2.52 10x6/uL (4.20-6.10); RDW 18.7 % (11.5-14.5); WBC 11.2 10x3/uL (4.8-10.8)
[2020-06-25 06:52] LABS: HEMOGLOBIN 6.7 g/dL (13.5-17.5); PLATELET COUNT 162 10x3/uL (130-400)
--- NOTE | 2020-06-25 07:10 | NUR ---
PAGED DR. GARCIA FOR PATIENT HEMOGLOBIN OF 6.7. AWAITING CALL BACK FOR ORDERS
--- NOTE | 2020-06-25 07:10 | NUR ---
RECEIVE SHIFT REPORT. RESTING IN BED WITH EYES OPEN. NO S/S OF DISTRESS PRESENT AT THIS TIME. WILL CONTINUE POC AND SAFETY PRECAUTIONS.
[2020-06-25 07:33] VITALS: BP 145/74
--- NOTE | 2020-06-25 08:14 | NUR ---
SPOKE WITH DR. WEAVER ABOUT PATIENT NO LONGER NEEDING DIALYSIS, WOULD LIKE ME TO SPEAK WITH CASE MANAGEMENT ABOUT PRISON CARE PLACEMENT. SPOKE WITH BRANDON. WILL FOLLOW UP.
--- NOTE | 2020-06-25 10:09 | NUR ---
PRE INFUSION VS 144/82, 102, 19, 99.0. INFUSION STARTED AT 125ML/HR AT 1013. WILL REMAIN AT BEDSIDE FOR FIRST 15 MINUTES TO MONITOR.
--- NOTE | 2020-06-25 10:32 | NUR ---
NO SIGN OF REACTION. VS PER PROTOCOL. INFUSION GOING AT 150ML/HR. WILL GET A TOTAL OF 2 UNITS.
[2020-06-25 12:00] VITALS: BP 151/86
--- NOTE | 2020-06-25 13:21 | NUR ---
PATIENT WHEEZING AFTER 1 UNIT BLOOD TRANFUSION, 02 SAT 97% WITH TRACH COLLAR 10L. WILL HOLD 2ND UNIT OF PRBC'S FOR NOW AND CHECK HGB. WILL CALL MD AND DISCUSS.
[2020-06-25 15:15] LABS: HEMATOCRIT 27.5 % (42.0-54.0); HEMOGLOBIN 8.4 g/dL (13.5-17.5)
[2020-06-25 20:33] VITALS: BP 137/45
[2020-06-25 23:50] VITALS: BP 127/54
[2020-06-26 04:38] VITALS: BP 100/53
[2020-06-26 05:27] LABS: BASOPHILS 0.2 % (0-2); EOSINOPHILS 3.5 % (0-7); HEMATOCRIT 24.4 % (42.0-54.0); IMMATURE GRANULOCYTES 0.6 % (0-5); LYMPHOCYTE ABS# 2.17 10x3/uL (1.32-3.57); LYMPHOCYTES 17.4 % (15-50); MCH 26.4 pg (26.0-34.0); MCHC 29.9 g/dL (31.0-37.0); MCV 88.1 fL (80.0-100.0); MEAN PLATELET VOLUME 10.1 fL (7.4-10.4); MONOCYTES 12.8 % (2-11); NEUTROPHIL ABS# 8.14 10x3/uL (1.78-5.38); NEUTROPHILS 65.5 % (40-80); PLATELET COUNT 176 10x3/uL (130-400); RBC 2.77 10x6/uL (4.20-6.10); RDW 18.2 % (11.5-14.5); WBC 12.5 10x3/uL (4.8-10.8)
[2020-06-26 05:38] LABS: HEMOGLOBIN 7.3 g/dL (13.5-17.5)
[2020-06-26 05:51] LABS: ALBUMIN 3.4 g/dL (3.4-5.0); ANION GAP 10.1 mmol/L (8-16); BILIRUBIN - TOTAL 0.49 mg/dL (0.2-1.3); CALCIUM 9.3 mg/dL (8.5-10.1); CARBON DIOXIDE 30.7 mmol/L (21.0-32.0); CREATININE - SERUM 3.5 mg/dL (0.6-1.3); POTASSIUM - SERUM 4.8 mmol/L (3.5-5.1); PROTEIN - SERUM 7.4 g/dL (6.4-8.2)
[2020-06-26 08:00] VITALS: BP 117/43
--- NOTE | 2020-06-26 09:53 | NUR ---
Nutrition follow-up/reassessment: Pt sleeping at time of RD rounds. Discussed during IDT team rounds Nepro continues @ 50 ml/hr per PEG tube Labs reviewed Estimated nutritional needs: 0942-0781 kcal (30-35 kcal/kg IBW) 95-105 g protein (1.2-1.3 g/kg IBW) Nutrition diagnosis: Increased nutrient needs (protein) R/T wound AEB pt with nonhealing wound s/p I&D of wound with diverting colostomy placment. Goals: - TF tolerance at goal rate - Meet est fluid needs without fluid overload - Stable dry wt +/-5# Interventions: Nepro @ goal rate is provideing 2160 kcal (76-89%), 97 gms protein (92-102%) Noted pt with recovering renal function; no more dialysis at this time Recommend, before discharge, to change TF formula back to Jevity 1.5 cata @ goal rate of 60 ml/hr to provide: 2340 kcal, 92 gm protein Pt was admitted on this TF regimen. RDN will follow-up patients progress toward nutrition goals: 06/26/20
--- NOTE | 2020-06-26 15:55 | NUR ---
BLOOD STARTED INFUSING AT 125 CC/HR.
--- NOTE | 2020-06-26 19:30 | NUR ---
RECEIVED REPORT, WILL ASSUME CARE OF PT, LYING IN BED, MAKING FACE, ASK IF HE WAS IN PAIN SHAKES HEAD, WILL PROVIDE PAIN MEDS, ANTIBONIC INFUSING, PEG @ 50ML/ FLUSH 15ML, SANDOVAL IS DRAINING, WOUNDVAC TO L. THIGH AND BOTTOM, BED IS LOW, SRX2, CALL LIGHT IN REACH, WILL CONTINUE PLAN OF CARE
--- NOTE | 2020-06-26 19:51 | NUR ---
1800-PT WOUND VAC CHANGED TO PT BUTTOCK. GOOD SUCTION OBTAINED BY THE TIME WE WERE DONE. TOLERATED OK. IVF @ KVO TO HEMOSPLIT, LEFT CHEST.
[2020-06-26 22:50] VITALS: BP 96/76
--- NOTE | 2020-06-27 00:03 | NUR ---
CHANGED FEEDING BAG
[2020-06-27 01:04] VITALS: BP 125/90
--- NOTE | 2020-06-27 03:37 | NUR ---
I have reviewed this patient and I concur with the Shift Assessment completed by the Licensed Practical Nurse today this shift.
[2020-06-27 05:22] LABS: BASOPHILS 0.1 % (0-2); EOSINOPHILS 3.4 % (0-7); HEMOGLOBIN 8.5 g/dL (13.5-17.5); IMMATURE GRANULOCYTES 0.4 % (0-5); LYMPHOCYTE ABS# 2.71 10x3/uL (1.32-3.57); LYMPHOCYTES 19.1 % (15-50); MCH 27.2 pg (26.0-34.0); MCHC 30.4 g/dL (31.0-37.0); MCV 89.7 fL (80.0-100.0); MEAN PLATELET VOLUME 10.2 fL (7.4-10.4); NEUTROPHIL ABS# 9.07 10x3/uL (1.78-5.38); PLATELET COUNT 190 10x3/uL (130-400); RBC 3.12 10x6/uL (4.20-6.10); RDW 17.8 % (11.5-14.5); WBC 14.2 10x3/uL (4.8-10.8)
[2020-06-27 05:43] LABS: ALBUMIN 3.6 g/dL (3.4-5.0); ANION GAP 12.8 mmol/L (8-16); BILIRUBIN - TOTAL 0.36 mg/dL (0.2-1.3); CARBON DIOXIDE 28.5 mmol/L (21.0-32.0); CREATININE - SERUM 3.7 mg/dL (0.6-1.3); POTASSIUM - SERUM 5.3 mmol/L (3.5-5.1); PROTEIN - SERUM 7.9 g/dL (6.4-8.2)
[2020-06-27 08:32] VITALS: BP 112/53
--- NOTE | 2020-06-27 09:20 | NUR ---
REPOSITIONED PT IN BED, TURNED PT TO RT SIDE. AND APPLIED BILAT HEEL PROTECTORS. PT NONVERBAL BUT WILL NOD YES AND NO. TRACH WITH TRACH COLLAR AT 35%. CONDOM CATH IN PLACE. WOUND VAC TO LT THIGH AND BUTTOCKS INTACT. PEG TUBE INFUSING NEPRO AT 50CC/HR. SR-96 ON TELE. MEDS GIVEN, ALSO GAVE 4MG OF MORPHINE FOR PAIN LEVEL OF 8/10. PT DENIES ANY OTHER NEEDS AT THIS TIME. CALL LIGHT IN REACH, WILL CONTINUE PLAN OF CARE.
--- NOTE | 2020-06-27 10:58 | NUR ---
BLOOD SUGAR OF 132, NO COVERAGE NEEDED PER S/S.
--- NOTE | 2020-06-27 16:04 | NUR ---
BLOOD SUGAR OF 130, NO COVERAGE NEEDED PER S/S. PT RESTING COMFORTABLY IN BED, CALL LIGHT IN REACH.
[2020-06-27 16:26] VITALS: BP 93/36
--- NOTE | 2020-06-27 16:52 | NUR ---
650 OF TYLENOL GIVEN FOR FEVER.
--- NOTE | 2020-06-27 18:02 | NUR ---
RESPOSITIONED PT IN BED, ALSO SUCTIONED TRACH AND ROPE SILICA MACHINE OPERATOR PROVIDED ORAL CARE. PT HURTING BUT BP IS LOW, UNABLE TO GIVE MORPHINE AT THIS TIME.
[2020-06-27 20:30] VITALS: BP 112/49
[2020-06-28 00:30] VITALS: BP 112/59
[2020-06-28 04:30] VITALS: BP 118/58
[2020-06-28 08:53] VITALS: BP 96/44
--- NOTE | 2020-06-28 10:00 | NUR ---
COMPLETE LINEN CHANGE PROVIDED AND REPOSITIONED PT IN BED, NOTICIED THAT PT HAS A NEW SKIN TEAR TO RT LOWER BUTTOCK. COLOSTOMY BAG CHANGED DUE TO IT LEAKING. ALSO GAVE 4MG OF MORPHINE FOR PAIN LEVEL OF 8/10. ALSO SUCTIONED PT AT THIS TIME. ALL NEEDS MET, CALL LIGHT IN REACH.
--- NOTE | 2020-06-28 10:54 | NUR ---
BLOOD SUGAR OF 130, NO COVERAGE NEEDED PER S/S.
[2020-06-28 16:16] VITALS: BP 117/30
--- NOTE | 2020-06-28 18:23 | NUR ---
REPOSITIONED PT IN BED. EMPTIED 500CC OF YELLOW URINE OUT OF SANDOVAL. PT DENIES ANY NEEDS, CALL LIGHT IN REACH.
--- NOTE | 2020-06-28 19:15 | MORECARE ---
CASE MANAGEMENT DISCHARGE SUMMARY PATIENT: SERGE DURHAM UNIT: [id number] ADM DATE: 05/28/20 AGE: 69 : 51 SEX: M ROOM/BED: D.2103 AUTHOR: BECKY,DOC PHYSICIAN: REFERRING PHYSICIAN: MAYTE GARICA MD DATE OF SERVICE: 06/28/20 Case Management Discharge Planning Summary CT Patient Name: SERGE DURHAM Attending MD : MAYTE NAVA Medical Record: [id number] Encounter : [id number] Facility : [address] [place] [address] Admission Date : 115:37 Center Discharge Date : [address] [place] [address] Date of : DC Plan ID : [id number] Age/Sex/Martia : 69/ M/S Printed on : 06/28/20 19:14 CT DCP Review Details Anticipated D/C: Expected LOS : Case Status : INITIATED - Initial Reviewe: [id number] - Jasmyn Villafana Initial Review: 06/09/2020 Planned Disposi: 64 - Discharge/Trans to a Nursing Facility Certified under Medicaid but not Medicare Final Discharge: - Final Reviewer : : Final Review : Comments CT Entered Date Type Reviewer 06/28/20 19:04 CT Discharge Planning Jasmyn Villafana Comment PATIENT IS A RESIDENT AT [facility] AND PLAN AT THIS TIME IS TO RETURN THERE UPON DISCHARGE 06/25/20 14:11 CT Discharge Planning Danni Coon Comment UPDATES FAXED TO [facility]. I SPOKE WITH DANIEL AND INFORMED HER THAT THE PATIENT DID HAVE A PEG WITH TUBE FEEDINGS AT GOAL RATE, OXYGEN AND 2 WOUND VACS AT THIS TIME. CM WILL CONTINUE TO FOLLOW AND ASSIST WITH DISCHARGE PLANNING/NEEDS. DCP Focus Questions & Answers DCP Screen High Risk Factors: Hosp related to CHF, COPD, DM, End Stage Ds, CVA, CA DCP Evaluation Patient's current cognitive status: Alert Patient gives permission to discuss discharge KEON OSBORNE [phone] plans with: (name, relationship and number) WINTER [phone] Patient's ability to cope with chronic illness d. No chronic illness Alternate discharge plan (if recommended plan not [facility] agreed upon by patient and/or caregiver): Does the patient have the ability to pay for or N/A attain post discharge needs / services? Functional screen assessment: Noticeable poor ADL management Physical Status: Total care dependent Physical Status: Speech impaired Physical Status: Mobility impaired Physical Status: Indwelling urinary catheter Physical Status: Compromised skin integrity Equipment needed for post hospitalization: Wound Vac Equipment needed for post hospitalization: Pressure or Air Mattress Equipment needed for post hospitalization: Peg Tube feeding/maintenance Equipment needed for post hospitalization: Ostomy Supplies Equipment needed for post hospitalization: Home Oxygen via Mask Is there a likelihood that the patient will Yes require additional services to return to the preadmission environment? Functional screen comments: TOTAL CARE Living Arrangements: [facility] Facility Patient with capacity for self-care or can be Yes cared for in same environment as prior to hospitalization? Baseline cognitive status: Alert Preadmission facility can/cannot provide post Can - at same level of care as preadmission hospital level of care needs: Facility / Agency name and contact information [facility] from Question 3 (if applicable): [facility] Does Patient have transportation to get home and Yes to follow-up medical appointments when discharged from the hospital? Would patient like to participate in any Care Not applicable Coordination programs (if applicable): Does the patient have electricity at home? Yes Does the patient have running water in their Yes house? Mental health screen: No mental health history DCP Re-evaluation Would patient like to participate in any Care Not applicable Coordination programs (if applicable): [facility] SERGE DURHAM MR#: [id number] /Age/Sex/[id number] //M /S Attending Physician Name: CLARA GARCIA [id number] Patient Account:[id number] [facility] Page -1 of 1 All edits/amendments must be made on the electronic document DICTATION DATE: 06/28/201913 STEAM FITTER HELPER: AMILCAR 06/28/201913 RPT#: [id number] DC DATE: STATUS: ADM IN [facility] [address] [place] [address] END OF REPORT
[2020-06-28 22:30] VITALS: BP 106/40
[2020-06-29 04:00] VITALS: BP 97/36
[2020-06-29 07:45] LABS: BASOPHILS 0.2 % (0-2); EOSINOPHILS 5.6 % (0-7); HEMATOCRIT 26.2 % (42.0-54.0); HEMOGLOBIN 8.1 g/dL (13.5-17.5); IMMATURE GRANULOCYTES 0.3 % (0-5); LYMPHOCYTE ABS# 1.92 10x3/uL (1.32-3.57); LYMPHOCYTES 17.6 % (15-50); MCH 27.6 pg (26.0-34.0); MCHC 30.9 g/dL (31.0-37.0); MCV 89.1 fL (80.0-100.0); MEAN PLATELET VOLUME 10.3 fL (7.4-10.4); MONOCYTES 15.5 % (2-11); NEUTROPHIL ABS# 6.66 10x3/uL (1.78-5.38); NEUTROPHILS 60.8 % (40-80); PLATELET COUNT 195 10x3/uL (130-400); RBC 2.94 10x6/uL (4.20-6.10); RDW 18.2 % (11.5-14.5); WBC 10.9 10x3/uL (4.8-10.8)
[2020-06-29 07:49] LABS: ANION GAP 12.5 mmol/L (8-16); CALCIUM 10.1 mg/dL (8.5-10.1); CARBON DIOXIDE 28.8 mmol/L (21.0-32.0); CREATININE - SERUM 3.4 mg/dL (0.6-1.3); POTASSIUM - SERUM 4.3 mmol/L (3.5-5.1)
[2020-06-29 08:58] VITALS: BP 109/49
--- NOTE | 2020-06-29 09:33 | NUR ---
AM MEDS GIVEN AT THIS TIME. PT AWAKE, NON VERBAL. PT NODS TO QUESTIONS. RR EVEN NON LABORED, TRACH COLLAR IN PLACE. IV INFUSING WITHOUT DIFFICULTY. CLWR.
--- NOTE | 2020-06-29 12:40 | NUR ---
Nutrition Follow-up: Tolerating TF @ goal rate. Nursing reports numerous wounds. No HD at this time. Diet: Nepro - goal rate 60 mL/hr -provides 2592 kcal (92-107% est needs) & 117 g protein (111-123% est needs) daily No new wt; last wt: 295# (06/24) Labs noted: Na 135, K+ 4.3, BUN 63, Cre 3.4, GFR 23, Glu 136 Meds noted: Miralax, Protonix, Florajen, Lasix, Albumin -TF as tolerated per MD. Rec, before d/c, change TF back to Jevity 1.5 @ 60 mL/hr (pt was admitted on this TF regimen). -Need new wt. -RD will follow up within 2-3 days.
--- NOTE | 2020-06-29 13:17 | NUR ---
PT REPOSITIONED, PT SHOOK HIS HEAD NO WHEN ATTEMPTING. ELEVATED BUE. RR EVEN NON LABORED. IV INFUSING WITHOUT COMPLICATIONS. WILL CONTINUE TO MONITOR.
--- NOTE | 2020-06-29 15:40 | NUR ---
MEDS GIVEN PER EMAR. ATTEMPTED TO REPOSITION PT, PT SHAKES HEAD NO AND BECOMES TEARFUL. ENCOURAGED PT REGARDING THE NEED TO REPOSITION. PT SUPPORTED WITH PILLOWS. RR EVEN NON LABORED. CLWR.
[2020-06-29 15:53] VITALS: BP 102/75
[2020-06-29 20:00] VITALS: BP 101/40
[2020-06-30] VITALS (8 sets, daily range): BP systolic 100–150; BP diastolic 36–70
--- NOTE | 2020-06-30 00:30 | NUR ---
PT LAYING SUPINE, REFUSING TO BE TURNED. PT GRIMACES AND APPEARS TO BE TEARFUL. PT REFUSING TO LET NURSE EMPTY OR CHANGE HIS COLOSTOMY. PT NODS YES OR NO TO QUESTIONS BUT ANSWERED INCORRECTLY TO ORIENTATION QUESTIONS. PT CONDOM CATH INTACT. HEMOSPLIT INTACT. BS 130. TEMP 100.7 TYLENOL PRN TO BE GIVEN AGAIN AT 0200. NEPHRO FILLED FOR CONTINUOUS FEEDS.
--- NOTE | 2020-06-30 02:24 | NUR ---
COLOSTOMY BAG CHANGED
--- NOTE | 2020-06-30 03:34 | MORECARE ---
CASE MANAGEMENT DISCHARGE SUMMARY PATIENT: SERGE DURHAM UNIT: [id number] ADM DATE: 05/28/20 AGE: 69 : 51 SEX: M ROOM/BED: D.2103 AUTHOR: BECKY,DOC PHYSICIAN: REFERRING PHYSICIAN: MAYTE GARCIA MD DATE OF SERVICE: 06/30/20 Case Management Discharge Planning Summary CT Patient Name: SERGE DURHAM Attending MD : MAYTE NAVA Medical Record: [id number] Encounter : [id number] Facility : [address] [place] [address] Admission Date : 115:37 Center Discharge Date : [address] [place] [address] Date of : DC Plan ID : [id number] Age/Sex/Martia : 69/ M/S Printed on : 06/30/20 3:32 CT DCP Review Details Anticipated D/C: Expected LOS : Case Status : INITIATED - Initial Reviewe: [id number] - Jasmyn Villafana Initial Review: 06/09/2020 Planned Disposi: 64 - Discharge/Trans to a Nursing Facility Certified under Medicaid but not Medicare Final Discharge: - Final Reviewer : : Final Review : Comments CT Entered Date Type Reviewer 06/30/20 3:17 CT Discharge Planning Jasmyn Villafana Comment LATE ENTRY 06/29/20 CM called [facility] to see if they would be able to accommodate patient upon discharge. CM faxed over updated clinicals and will check back to see in [facility] will accept patient back. 06/28/20 19:04 CT Discharge Planning Jasmyn Villafana Comment PATIENT IS A RESIDENT AT [facility] AND PLAN AT THIS TIME IS TO RETURN THERE UPON DISCHARGE 06/25/20 14:11 CT Discharge Planning Danni Coon Comment UPDATES FAXED TO [facility]. I SPOKE WITH DANIEL AND INFORMED HER THAT THE PATIENT DID HAVE A PEG WITH TUBE FEEDINGS AT GOAL RATE, OXYGEN AND 2 WOUND VACS AT THIS TIME. CM WILL CONTINUE TO FOLLOW AND ASSIST WITH DISCHARGE PLANNING/NEEDS. DCP Focus Questions & Answers DCP Screen High Risk Factors: Hosp related to CHF, COPD, DM, End Stage Ds, CVA, CA DCP Evaluation Patient's current cognitive status: Alert Patient gives permission to discuss discharge KEON OSBORNE [phone] plans with: (name, relationship and number) WINTER [phone] Patient's ability to cope with chronic illness d. No chronic illness Alternate discharge plan (if recommended plan not [facility] agreed upon by patient and/or caregiver): Does the patient have the ability to pay for or N/A attain post discharge needs / services? Functional screen assessment: Noticeable poor ADL management Physical Status: Total care dependent Physical Status: Speech impaired Physical Status: Mobility impaired Physical Status: Indwelling urinary catheter Physical Status: Compromised skin integrity Equipment needed for post hospitalization: Wound Vac Equipment needed for post hospitalization: Pressure or Air Mattress Equipment needed for post hospitalization: Peg Tube feeding/maintenance Equipment needed for post hospitalization: Ostomy Supplies Equipment needed for post hospitalization: Home Oxygen via Mask Is there a likelihood that the patient will Yes require additional services to return to the preadmission environment? Functional screen comments: TOTAL CARE Living Arrangements: Senior Care Facility Patient with capacity for self-care or can be Yes cared for in same environment as prior to hospitalization? Baseline cognitive status: Alert Preadmission facility can/cannot provide post Can - at same level of care as preadmission hospital level of care needs: Facility / Agency name and contact information [facility] from Question 3 (if applicable): Pharmacy name(s): [facility] Does Patient have transportation to get home and Yes to follow-up medical appointments when discharged from the hospital? Would patient like to participate in any Care Not applicable Coordination programs (if applicable): Does the patient have electricity at home? Yes Does the patient have running water in their Yes house? Mental health screen: No mental health history DCP Re-evaluation Would patient like to participate in any Care Not applicable Coordination programs (if applicable): [facility] SERGE DURHAM MR#: [id number] /Age/Sex/Xwfoft99-Cak-21 /69/M /S Attending Physician Name: CLARA GARCIA [id number] Patient Account:[id number] [facility] Page -1 of 1 All edits/amendments must be made on the electronic document DICTATION DATE: 06/30/20331 MEDICAL SOCIOLOGIST: AMILCAR 06/30/20331 RPT#: [id number] DC DATE: STATUS: ADM IN [facility] [address] [place] [address] END OF REPORT
[2020-06-30 06:00] LABS: BASOPHILS 0.2 % (0-2); EOSINOPHILS 5.2 % (0-7); HEMOGLOBIN 7.7 g/dL (13.5-17.5); IMMATURE GRANULOCYTES 0.3 % (0-5); LYMPHOCYTE ABS# 2.02 10x3/uL (1.32-3.57); LYMPHOCYTES 17.6 % (15-50); MCH 27.3 pg (26.0-34.0); MCHC 30.8 g/dL (31.0-37.0); MCV 88.7 fL (80.0-100.0); MEAN PLATELET VOLUME 10.1 fL (7.4-10.4); MONOCYTES 14.5 % (2-11); NEUTROPHIL ABS# 7.14 10x3/uL (1.78-5.38); NEUTROPHILS 62.2 % (40-80); PLATELET COUNT 192 10x3/uL (130-400); RBC 2.82 10x6/uL (4.20-6.10); RDW 18.1 % (11.5-14.5); WBC 11.5 10x3/uL (4.8-10.8)
[2020-06-30 06:16] LABS: ANION GAP 13.2 mmol/L (8-16); CALCIUM 9.7 mg/dL (8.5-10.1); CARBON DIOXIDE 27.5 mmol/L (21.0-32.0); CREATININE - SERUM 3.2 mg/dL (0.6-1.3); POTASSIUM - SERUM 4.7 mmol/L (3.5-5.1)
--- NOTE | 2020-06-30 08:30 | NUR ---
PT SUCTIONED VIA TRACH USING STERILE TECHNIQUE. MODERATE AMOUNT OF YELLOW SPUTUM. PT TOLERATED WELL WITH SOME INDUCED COUGHING.
--- NOTE | 2020-06-30 09:22 | NUR ---
PT LINENS CHANGED AND PARTIAL BED BATH COMPLETED INCLUDING ISREAL CARE. COLOSTOMY BAG CHANGED. DRESSING TO BUTTOCK CHANGED, PT TEARFUL AND GRIMACES. PRN PAIN MEDICATION GIVEN. PT SUPPORTED WITH PILLOWS. LIGHTS TURNED OFF, CLWR.
--- NOTE | 2020-06-30 10:35 | MORECARE ---
CASE MANAGEMENT DISCHARGE SUMMARY PATIENT: SERGE DURHAM UNIT: [id number] ADM DATE: 05/28/20 AGE: 69 : 51 SEX: M ROOM/BED: D.2103 AUTHOR: BECKY,DOC PHYSICIAN: REFERRING PHYSICIAN: MAYTE GARCIA MD DATE OF SERVICE: 06/30/20 Case Management Discharge Planning Summary CT Patient Name: SERGE DURHAM Attending MD : MAYTE NAVA Medical Record: [id number] Encounter : [id number] Facility : [address] [place] [address] Admission Date : 115:37 Center Discharge Date : [address] [place] [address] Date of : DC Plan ID : [id number] Age/Sex/Martia : 69/ M/S Printed on : 06/30/20 10:33 CT DCP Review Details Anticipated D/C: Expected LOS : Case Status : INITIATED - Initial Reviewe: [id number] - Jasmyn Villafana Initial Review: 06/09/2020 Planned Disposi: 64 - Discharge/Trans to a Nursing Facility Certified under Medicaid but not Medicare Final Discharge: - Final Reviewer : : Final Review : Comments CT Entered Date Type Reviewer 06/30/20 10:12 CT Discharge Planning Evelyne Flores Comment UPDATES FAXED TO DANIEL AT [facility]. WAITING CALL BACK TO SEE WHEN THEY CAN TAKE HIM BACK. CM TO FOLLOW AND ASSIST NEEDED. 06/30/20 3:17 CT Discharge Planning Jasmyn Villafana Comment LATE ENTRY 06/29/20 [facility] would be [facility] to accommodate patient upon discharge. CM faxed over updated clinicals and will check back to see in [facility] will accept patient back. 06/28/20 19:04 CT Discharge Planning Jasmyn Villafana Comment PATIENT IS A RESIDENT AT [facility] AND PLAN AT THIS TIME IS TO RETURN THERE UPON DISCHARGE 06/25/20 14:11 CT Discharge Planning Danni Coon Comment UPDATES FAXED TO [facility]. I SPOKE WITH DANIEL AND INFORMED HER THAT THE PATIENT DID HAVE A PEG WITH TUBE FEEDINGS AT GOAL RATE, OXYGEN AND 2 WOUND VACS AT THIS TIME. CM WILL CONTINUE TO FOLLOW AND ASSIST WITH DISCHARGE PLANNING/NEEDS. DCP Focus Questions & Answers DCP Screen High Risk Factors: Hosp related to CHF, COPD, DM, End Stage Ds, CVA, CA DCP Evaluation Patient's current cognitive status: Alert Patient gives permission to discuss discharge KEON OSBORNE [phone] plans with: (name, relationship and number) WINTER [phone] Patient's ability to cope with chronic illness d. No chronic illness Alternate discharge plan (if recommended plan not [facility] agreed upon by patient and/or caregiver): Does the patient have the ability to pay for or N/A attain post discharge needs / services? Functional screen assessment: Noticeable poor ADL management Physical Status: Total care dependent Physical Status: Speech impaired Physical Status: Mobility impaired Physical Status: Indwelling urinary catheter Physical Status: Compromised skin integrity Equipment needed for post hospitalization: Wound Vac Equipment needed for post hospitalization: Pressure or Air Mattress Equipment needed for post hospitalization: Peg Tube feeding/maintenance Equipment needed for post hospitalization: Ostomy Supplies Equipment needed for post hospitalization: Home Oxygen via Mask Is there a likelihood that the patient will Yes require additional services to return to the preadmission environment? Functional screen comments: TOTAL CARE Living Arrangements: Snf Facility Patient with capacity for self-care or can be Yes cared for in same environment as prior to hospitalization? Baseline cognitive status: Alert Preadmission facility can/cannot provide post Can - at same level of care as preadmission hospital level of care needs: Facility / Agency name and contact information [facility] from Question 3 (if applicable): Pharmacy name(s): [facility] Does Patient have transportation to get home and Yes to follow-up medical appointments when discharged from the hospital? Would patient like to participate in any Care Not applicable Coordination programs (if applicable): Does the patient have electricity at home? Yes Does the patient have running water in their Yes house? Mental health screen: No mental health history DCP Re-evaluation Would patient like to participate in any Care Not applicable Coordination programs (if applicable): [facility] SERGE DURHAM MR#: [id number] /Age/Sex/Fflger72-Ltp-56 /69/M /S Attending Physician Name: CLARA GARCIA [id number] Patient Account:[id number] [facility] Page -1 of 1 All edits/amendments must be made on the electronic document DICTATION DATE: 06/30/201032 BUSINESS ANALYTICS SPECIALIST: AMILCAR 06/30/20 103 RPT#: [id number] DC DATE: STATUS: ADM IN [facility] [address] [place] [address] END OF REPORT
--- NOTE | 2020-06-30 16:00 | MORECARE ---
CASE MANAGEMENT DISCHARGE SUMMARY PATIENT: SERGE DURHAM UNIT: [id number] ADM DATE: 05/28/20 AGE: 69 : 51 SEX: M ROOM/BED: D.2103 AUTHOR: BECKY,DOC PHYSICIAN: REFERRING PHYSICIAN: MAYTE GARCIA MD DATE OF SERVICE: 06/30/20 Case Management Discharge Planning Summary COMMENTS ENTERED DATE: 06/30/20 15:55 CT COMMENT TYPE: Discharge Planning REVIEWER: Tomas Guo POSSIBLE MONDAY DC TO [facility]. CM TEAM INFORMED THAT WOUND VAC WILL BE AT FACILITY ON MONDAY. CM team informed by Daniel [facility] that [facility] can possibly DC to their facility on Monday when the Wound Vac arrives at their facility. CM team did not follow up with family for Hospice Plan B. CM team continue to Coordinate with [facility] for possible Monday Discharge. CM will continue to follow and will assist as needed with dc plans/needs. ENTERED DATE: 06/30/20 15:55 CT COMMENT TYPE: Discharge Planning REVIEWER: Tomas Guo POSSIBLE NEED FOR PLAN B. Received call from [facility]. CM informed that that the patient's needs may not be appropriate for their facility. Staff member stated that she will check with her building maintenance supervisor and call CM team back. Staff member inquired if CM team had a plan B such as hospice. CM team will follow up with family. CM will continue to follow and will assist as needed with dc plans/needs. Appended by Tomas Guo on 06/30/2020 15:57 CDT: POSSIBLE DC MONDAY TO [facility] ENTERED DATE: 06/30/20 10:12 CT COMMENT TYPE: Discharge Planning REVIEWER: Evelyne Flores UPDATES FAXED TO DANIEL AT [facility]. WAITING CALL BACK TO SEE WHEN THEY CAN TAKE HIM BACK. CM TO FOLLOW AND ASSIST NEEDED. ENTERED DATE: 06/30/20 3:17 CT COMMENT TYPE: Discharge Planning REVIEWER: Jasmyn Villafana LATE ENTRY 06/29/20 CM [facility] would be able to accommodate patient upon discharge. CM faxed over updated clinicals and will check back to see in [facility] will accept patient back. ENTERED DATE: 06/28/20 19:04 CT COMMENT TYPE: Discharge Planning REVIEWER: Jasmyn Villafana PATIENT IS A RESIDENT AT [facility] AND PLAN AT THIS TIME IS TO RETURN THERE UPON DISCHARGE ENTERED DATE: 06/25/20 14:11 CT COMMENT TYPE: Discharge Planning REVIEWER: Danni Coon UPDATES [facility] TO [facility] I SPOKE WITH DANIEL AND INFORMED HER THAT THE PATIENT DID HAVE A PEG WITH TUBE FEEDINGS AT GOAL RATE, OXYGEN AND 2 WOUND VACS AT THIS TIME. CM WILL CONTINUE TO FOLLOW AND ASSIST WITH DISCHARGE PLANNING/NEEDS. DCP REVIEW SUMMARY ANTICIPATED D/C DATE: EXPECTED LOS : CASE STATUS: DCP Initiated INITIAL REVIEW: 06/09/2020 INITIAL REVIEWER: Jasmyn Villafana FINAL DISCHARGE DISPOSITION: : FINAL REVIEWER: FINAL REVIEW DATE: DCP Focus Questions & Answers DCP Screen QUESTION: ANSWER High Risk Factors: : Hosp related to CHF, COPD, DM, End Stage Ds, CVA, CA DCP Evaluation QUESTION: ANSWER Patient's current cognitive status: : Alert Patient gives permission to discuss discharge plans with: (name, relationship and number) : KEON OSBORNE [phone] WINTER [phone] Patient's ability to cope with chronic illness : d. No chronic illness Alternate discharge plan (if recommended plan not agreed upon by patient and/or caregiver): : [facility] Does the patient have the ability to pay for or attain post discharge needs / services? : N/A Functional screen assessment: : Noticeable poor ADL management Physical Status: : Total care dependent Physical Status: : Speech impaired Physical Status: : Mobility impaired Physical Status: : Indwelling urinary catheter Physical Status: : Compromised skin integrity Equipment needed for post hospitalization: : Wound Vac Equipment needed for post hospitalization: : Pressure or Air Mattress Equipment needed for post hospitalization: : Peg Tube feeding/maintenance Equipment needed for post hospitalization: : Ostomy Supplies Equipment needed for post hospitalization: : Home Oxygen via Mask Is there a likelihood that the patient will require additional services to return to the preadmission environment? : Yes Functional screen comments: : TOTAL CARE Living Arrangements: : Jail Facility Patient with capacity for self-care or can be cared for in same environment as prior to hospitalization? : Yes Baseline cognitive status: : Alert Preadmission facility can/cannot provide post hospital level of care needs: : Can - at same level of care as preadmission Facility / Agency name and contact information from Question 3 (if applicable): : [facility] Pharmacy name(s): : [facility] Does Patient have transportation to get home and to follow-up medical appointments when discharged from the hospital? : Yes Would patient like to participate in any Care Coordination programs (if applicable): : Not applicable Does the patient have electricity at home? : Yes Does the patient have running water in their house? : Yes Mental health screen: : No mental health history DCP Re-evaluation QUESTION: ANSWER Would patient like to participate in any Care Coordination programs (if applicable): : Not applicable PROVIDER NETWORKING REVIEW DATE: 06/30/2020 SERVICE TYPE: Jail Facility REVIEWER: Evelyne Flores PROVIDER: FINAL PROVIDER? : FINAL DATE/TIME: CT PATIENT: SERGE DURHAM ENCOUNTER: [id number] MEDICAL RECORD#: [id number] ADMISSION DATE: 05/28/2020 DISCHARGE DATE: ATTENDING MD: MAYTE ECHEVERRIA : AGE: 69 MARITAL STATUS: S DC PLAN ID: [id number] FACILITY: [facility] PRINTED ON: 06/30/20 16:00 CT All edits/amendments must be made on the electronic document DICTATION DATE: 06/30/201557 [employer]RECTION [employer]OP SUPERVISOR: AMILCAR 06/30/201557 RPT#: [id number] DC DATE: STATUS: ADM IN [facility] [address] [place] [address] END OF REPORT
--- NOTE | 2020-06-30 20:40 | NUR ---
PT BUTTOCK WOUND VAC IS NOT SEALED OR IN PLACE. DR. GARCIA CALLED AND HE STATED THAT OR/SURGERY NEEDS TO KNOW. PAGED SURGERY AT 2036, AWAITING CALL BACK. PT IS RESTING IN BED IN SUPINE POSITION. PT IS GRIMACING WHEN TOUCHED. TYLENOL GIVEN FOR REPORTED FEVER. LORTAB GIVEN FOR PAIN. BS 132, NO COVERAGE NEEDED PER ORDER. WILL CONTINUE TO MONITOR
[2020-07-01 04:00] VITALS: BP 109/41
[2020-07-01 07:04] LABS: ANION GAP 14.3 mmol/L (8-16); CALCIUM 9.6 mg/dL (8.5-10.1); CARBON DIOXIDE 26.5 mmol/L (21.0-32.0); CREATININE - SERUM 3.2 mg/dL (0.6-1.3); POTASSIUM - SERUM 4.8 mmol/L (3.5-5.1)
[2020-07-01 07:18] LABS: BASOPHILS 0.3 % (0-2); EOSINOPHILS 4.5 % (0-7); HEMATOCRIT 25.1 % (42.0-54.0); HEMOGLOBIN 7.7 g/dL (13.5-17.5); IMMATURE GRANULOCYTES 0.4 % (0-5); LYMPHOCYTE ABS# 2.04 10x3/uL (1.32-3.57); LYMPHOCYTES 17.4 % (15-50); MCH 27.3 pg (26.0-34.0); MCHC 30.7 g/dL (31.0-37.0); MEAN PLATELET VOLUME 10.8 fL (7.4-10.4); MONOCYTES 15.1 % (2-11); NEUTROPHIL ABS# 7.28 10x3/uL (1.78-5.38); NEUTROPHILS 62.3 % (40-80); PLATELET COUNT 188 10x3/uL (130-400); RBC 2.82 10x6/uL (4.20-6.10); RDW 18.5 % (11.5-14.5); WBC 11.7 10x3/uL (4.8-10.8)
--- NOTE | 2020-07-01 07:40 | NUR ---
SPOKE WITH RENZO AT THIS TIME REGARDING WOUND VAC PLACEMENT TO BUTTOCK PER MD WANTING SURGERY CONSULTED D/T UNABLE TO GET TO SEAL.
[2020-07-01 08:01] VITALS: BP 115/53
--- NOTE | 2020-07-01 08:49 | NUR ---
AM MEDS GIVEN AT THIS TIME. PT POSITIONED WITH PILLOWS, RR EVEN SHALLOW, TRACH COLLAR IN PLACE. PT AWAKENS TO STIMULI. NO NEEDS VOICED, CLWR.
--- NOTE | 2020-07-01 11:07 | NUR ---
Nutrition Follow-up: Tolerating TF at goal rate. Multiple wounds. Noted surgery to see pt 2/2 wound vac placement on buttock. No HD at this time. Diet: Nepro @ 60 mL/hr No new wt; last wt: 295# (06/24) Labs noted: K+ 4.8, BUN 77, Cre 3.2, GFR 25, Glu 116 Meds noted: Miralax, Protonix, Florajen, Albumin, Lasix -TF as tolerated. -Need new wt. -RD follow-up: 07/03
[2020-07-01 11:17] VITALS: BP 125/65
--- NOTE | 2020-07-01 13:19 | NUR ---
BLOOD TRANSUFION COMPLTE, VS STABLE.
--- NOTE | 2020-07-01 15:07 | NUR ---
PAGED DR GARCIA AT THIS TIME D/T DR WEAVER WANTING TO SPEAK WITH HIM REGARDING PT PLAN OF CARE
[2020-07-01 15:24] VITALS: BP 105/35
--- NOTE | 2020-07-01 15:48 | NUR ---
PRN MORPHINE GIVEN D/T PT GRIMACING AND BEING TEARFUL WHEN NURSE IN ROOM. PT NODS HEAD YES WHEN ASKED IF HE IS IN PAIN. RR EVEN NON LABORED. BP 114/57. CLWR.
--- NOTE | 2020-07-01 19:04 | MORECARE ---
CASE MANAGEMENT DISCHARGE SUMMARY PATIENT: SERGE DURHAM UNIT: [id number] ADM DATE: 05/28/20 AGE: 69 : 51 SEX: M ROOM/BED: D.2103 AUTHOR: BECKY,DOC PHYSICIAN: REFERRING PHYSICIAN: MAYTE GARCIA MD DATE OF SERVICE: 07/01/20 Case Management Discharge Planning Summary COMMENTS ENTERED DATE: 07/01/20 18:48 CT COMMENT TYPE: Discharge Planning REVIEWER: Jasmyn Villafana CM notified that patient family has agreed to hospice. CM called and spoke with patient's sister Keon Aguilar [phone] and she gave CONCHA for [facility] or [facility] and would like inpatient hospice. CM contacted and faxed referral to [facility]. Marci with [facility] stated that the information coder nurse would be in this evening to evaluate the patient. CM will continue to follow and assist as needed with discharge planning / needs. ENTERED DATE: 06/30/20 15:55 CT COMMENT TYPE: Discharge Planning REVIEWER: Tomas Guo [facility] CM TEAM INFORMED THAT WOUND VAC WILL BE AT FACILITY ON MONDAY. CM team informed by [facility] that [facility] can possibly DC to their facility on Monday when the Wound Vac arrives at their facility. CM team did not follow up with family for Hospice Plan B. CM team continue to Co[facility] with [facility] for [facility] Discharge. CM will continue to follow and will assist as needed with dc plans/needs. ENTERED DATE: 06/30/20 15:55 CT COMMENT TYPE: Discharge Planning REVIEWER: Tomas Guo POSSIBLE NEED FOR PLAN B. Received call from [facility]. CM informed that that the patient's needs may not be appropriate for their facility. Staff member stated that she will check with her diamond finishing supervisor and call CM team back. Staff member inquired if CM team had a plan B such as hospice. CM team will follow up with family. CM will continue to follow and will assist as needed with dc plans/needs. Appended by Tomas Guo on 06/30/2020 15:57 CDT: POSSIBLE DC MONDAY TO [facility] ENTERED DATE: 06/30/20 10:12 CT COMMENT TYPE: Discharge Planning REVIEWER: Evelyne Flores UPDATES FAXED TO DANIEL AT [facility]. WAITING CALL BACK TO SEE WHEN THEY CAN TAKE HIM BACK. CM TO FOLLOW AND ASSIST NEEDED. ENTERED DATE: 06/30/20 3:17 CT COMMENT TYPE: Discharge Planning REVIEWER: Jasmyn Villafana LATE ENTRY 06/29/20 CM called [facility] to see if they would be able to accommodate patient upon discharge. CM faxed over updated clinicals and will check back to see in [facility] will accept patient back. ENTERED DATE: 06/28/20 19:04 CT COMMENT TYPE: Discharge Planning REVIEWER: Jasmyn Villafana PATIENT IS A RESIDENT AT [facility] AND PLAN AT THIS TIME IS TO RETURN THERE UPON DISCHARGE ENTERED DATE: 06/25/20 14:11 CT COMMENT TYPE: Discharge Planning REVIEWER: Danni Coon UPDATES FAXED TO [facility]. I SPOKE WITH DANIEL AND INFORMED HER THAT THE PATIENT DID HAVE A PEG WITH TUBE FEEDINGS AT GOAL RATE, OXYGEN AND 2 WOUND VACS AT THIS TIME. CM WILL CONTINUE TO FOLLOW AND ASSIST WITH DISCHARGE PLANNING/NEEDS. DCP REVIEW SUMMARY ANTICIPATED D/C DATE: EXPECTED LOS : CASE STATUS: DCP Initiated INITIAL REVIEW: 06/09/2020 INITIAL REVIEWER: Jasmyn Villafana FINAL DISCHARGE DISPOSITION: : FINAL REVIEWER: FINAL REVIEW DATE: DCP Focus Questions & Answers DCP Screen QUESTION: ANSWER High Risk Factors: : Hosp related to CHF, COPD, DM, End Stage Ds, CVA, CA DCP Evaluation QUESTION: ANSWER Patient's current cognitive status: : Alert Patient gives permission to discuss discharge plans with: (name, relationship and number) : KEON AGUILAR [phone] WINTER [phone] Patient's ability to cope with chronic illness : d. No chronic illness Alternate discharge plan (if recommended plan not agreed upon by patient and/or caregiver): : [facility] Does the patient have the ability to pay for or attain post discharge needs / services? : N/A Functional screen assessment: : Noticeable poor ADL management Physical Status: : Total care dependent Physical Status: : Speech impaired Physical Status: : Mobility impaired Physical Status: : Indwelling urinary catheter Physical Status: : Compromised skin integrity Equipment needed for post hospitalization: : Wound Vac Equipment needed for post hospitalization: : Pressure or Air Mattress Equipment needed for post hospitalization: : Peg Tube feeding/maintenance Equipment needed for post hospitalization: : Ostomy Supplies Equipment needed for post hospitalization: : Home Oxygen via Mask Is there a likelihood that the patient will require additional services to return to the preadmission environment? : Yes Functional screen comments: : TOTAL CARE Living Arrangements: : Alf Facility Patient with capacity for self-care or can be cared for in same environment as prior to hospitalization? : Yes Baseline cognitive status: : Alert Preadmission facility can/cannot provide post hospital level of care needs: : Can - at same level of care as preadmission Facility / Agency name and contact information from Question 3 (if applicable): : [facility] Pharmacy name(s): : [facility] Does Patient have transportation to get home and to follow-up medical appointments when discharged from the hospital? : Yes Would patient like to participate in any Care Coordination programs (if applicable): : Not applicable Does the patient have electricity at home? : Yes Does the patient have running water in their house? : Yes Mental health screen: : No mental health history DCP Re-evaluation QUESTION: ANSWER Would patient like to participate in any Care Coordination programs (if applicable): : Not applicable PROVIDER NETWORKING REVIEW DATE: 06/30/2020 SERVICE TYPE: Alf Facility REVIEWER: Evelyne Flores PROVIDER: FINAL PROVIDER? : FINAL DATE/TIME: CT PATIENT: SERGE DURHAM ENCOUNTER: [id number] MEDICAL RECORD#: [id number] ADMISSION DATE: 05/28/2020 DISCHARGE DATE: ATTENDING MD: MAYTE ECHEVERRIA : AGE: 69 MARITAL STATUS: S DC PLAN ID: [id number] FACILITY: [facility] PRINTED ON: 07/01/20 19:04 CT All edits/amendments must be made on the electronic document DICTATION DATE: 07/01/201903 WOOD CUTTER: AMILCAR 07/01/201903 RPT#: [id number] DC DATE: STATUS: ADM IN [facility] [address] [place] [address] END OF REPORT
[2020-07-01 20:01] VITALS: BP 103/46
--- NOTE | 2020-07-01 23:38 | MORECARE ---
CASE MANAGEMENT DISCHARGE SUMMARY PATIENT: SERGE DURHAM UNIT: [id number] ADM DATE: 05/28/20 AGE: 69 : 51 SEX: M ROOM/BED: D.2103 AUTHOR: BECKY,DOC PHYSICIAN: REFERRING PHYSICIAN: MAYTE GARCIA MD DATE OF SERVICE: 07/01/20 Case Management Discharge Planning Summary COMMENTS ENTERED DATE: 07/01/20 18:48 CT COMMENT TYPE: Discharge Planning REVIEWER: Jasmyn Villafana CM notified that patient family has agreed to hospice. CM called and spoke with patient's sister Keon Aguilar [phone] and she gave CONCHA for [facility] or [facility] and would like inpatient hospice. CM contacted and faxed referral to [facility]. Marci with [facility] stated that the direct response consultant nurse would be in this evening to evaluate the patient. CM will continue to follow and assist as needed with discharge planning / needs. ENTERED DATE: 06/30/20 15:55 CT COMMENT TYPE: Discharge Planning REVIEWER: Tomas Guo POSSIBLE [facility] CM TEAM INFORMED THAT WOUND VAC WILL BE AT FACILITY ON MONDAY. CM team [facility] that [facility] can possibly DC to their facility on Monday when the Wound Vac arrives at their facility. CM team did not follow up with family for Hospice Plan B. CM team continue to Co[facility] for [facility] Discharge. CM will continue to follow and will assist as needed with dc plans/needs. ENTERED DATE: 06/30/20 15:55 CT COMMENT TYPE: Discharge Planning REVIEWER: Tomas Guo POSSIBLE NEED FOR PLAN B. Received call from [facility]. CM informed that that the patient's needs may not be appropriate for their facility. Staff member stated that she will check with her wireline supervisor and call CM team back. Staff member inquired if CM team had a plan B such as hospice. CM team will follow up with family. CM will continue to follow and will assist as needed with dc plans/needs. Appended by Tomas Guo on 06/30/2020 15:57 CDT: POSSIBLE DC MONDAY TO [facility] ENTERED DATE: 06/30/20 10:12 CT COMMENT TYPE: Discharge Planning REVIEWER: Evelyne Flores UPDATES FAXED TO DANIEL AT [facility]. WAITING CALL BACK TO SEE WHEN THEY CAN TAKE HIM BACK. CM TO FOLLOW AND ASSIST NEEDED. ENTERED DATE: 06/30/20 3:17 CT COMMENT TYPE: Discharge Planning REVIEWER: Jasmyn Villafana LATE ENTRY 06/29/20 CM called [facility] to see if they would be able to accommodate patient upon discharge. CM faxed over updated clinicals and will check back to see in [facility] will accept patient back. ENTERED DATE: 06/28/20 19:04 CT COMMENT TYPE: Discharge Planning REVIEWER: Jasmyn Villafana PATIENT IS A RESIDENT AT [facility] AND PLAN AT THIS TIME IS TO RETURN THERE UPON DISCHARGE ENTERED DATE: 06/25/20 14:11 CT COMMENT TYPE: Discharge Planning REVIEWER: Danni Coon UPDATES FAXED TO [facility]. I SPOKE WITH DANIEL AND INFORMED HER THAT THE PATIENT DID HAVE A PEG WITH TUBE FEEDINGS AT GOAL RATE, OXYGEN AND 2 WOUND VACS AT THIS TIME. CM WILL CONTINUE TO FOLLOW AND ASSIST WITH DISCHARGE PLANNING/NEEDS. DCP REVIEW SUMMARY ANTICIPATED D/C DATE: EXPECTED LOS : CASE STATUS: DCP Initiated INITIAL REVIEW: 06/09/2020 INITIAL REVIEWER: Jasmyn Villafana FINAL DISCHARGE DISPOSITION: : FINAL REVIEWER: FINAL REVIEW DATE: DCP Focus Questions & Answers DCP Screen QUESTION: ANSWER High Risk Factors: : Hosp related to CHF, COPD, DM, End Stage Ds, CVA, CA DCP Evaluation QUESTION: ANSWER Patient's current cognitive status: : Alert Patient's ability to cope with chronic illness : d. No chronic illness Patient gives permission to discuss discharge plans with: (name, relationship and number) : KEON AGUILAR [phone] WINTER [phone] Alternate discharge plan (if recommended plan not agreed upon by patient and/or caregiver): : [facility] Does the patient have the ability to pay for or attain post discharge needs / services? : N/A Functional screen assessment: : Noticeable poor ADL management Physical Status: : Compromised skin integrity Physical Status: : Indwelling urinary catheter Physical Status: : Mobility impaired Physical Status: : Speech impaired Physical Status: : Total care dependent Functional screen comments: : TOTAL CARE Equipment needed for post hospitalization: : Home Oxygen via Mask Equipment needed for post hospitalization: : Ostomy Supplies Equipment needed for post hospitalization: : Peg Tube feeding/maintenance Equipment needed for post hospitalization: : Pressure or Air Mattress Equipment needed for post hospitalization: : Wound Vac Is there a likelihood that the patient will require additional services to return to the preadmission environment? : Yes Living Arrangements: : Residential Facility Patient with capacity for self-care or can be cared for in same environment as prior to hospitalization? : Yes Baseline cognitive status: : Alert Preadmission facility can/cannot provide post hospital level of care needs: : Can - at same level of care as preadmission Facility / Agency name and contact information from Question 3 (if applicable): : [facility] Pharmacy name(s): : [facility] Does Patient have transportation to get home and to follow-up medical appointments when discharged from the hospital? : Yes Would patient like to participate in any Care Coordination programs (if applicable): : Not applicable Does the patient have electricity at home? : Yes Does the patient have running water in their house? : Yes Mental health screen: : No mental health history DCP Re-evaluation QUESTION: ANSWER Would patient like to participate in any Care Coordination programs (if applicable): : Not applicable PROVIDER NETWORKING REVIEW DATE: 06/30/2020 SERVICE TYPE: Residential Facility REVIEWER: Evleyne Flores PROVIDER: FINAL PROVIDER? : FINAL DATE/TIME: CT PATIENT: SERGE DURHAM ENCOUNTER: [id number] MEDICAL RECORD#: [id number] ADMISSION DATE: 05/28/2020 DISCHARGE DATE: 07/01/2020 ATTENDING MD: MAYTE ECHEVERRIA : AGE: 69 MARITAL STATUS: S DC PLAN ID: [id number] FACILITY: [facility] PRINTED ON: 07/01/20 23:37 CT All edits/amendments must be made on the electronic document DICTATION DATE: 07/01/202336 FOLDER TAPER OPERATOR: DM 07/01/202336 RPT#: [id number] DC DATE:07/01/20 STATUS: DIS IN [facility] [address] [place] [address] END OF REPORT
--- NOTE | 2020-07-02 14:49 | MORECARE ---
CASE MANAGEMENT DISCHARGE SUMMARY PATIENT: SERGE DURHAM UNIT: [id number] ADM DATE: 05/28/20 AGE: 69 : 51 SEX: M ROOM/BED: D.2103 AUTHOR: BECKY,DOC PHYSICIAN: REFERRING PHYSICIAN: MAYTE GARCIA MD DATE OF SERVICE: 07/02/20 Case Management Discharge Planning Summary COMMENTS ENTERED DATE: 07/01/20 18:48 CT COMMENT TYPE: Discharge Planning REVIEWER: Jasmyn Villafana CM notified that patient family has agreed to hospice. CM called and spoke with patient's sister Keon Aguilar [phone] and she gave CONCHA for [facility] or [facility] and would like inpatient hospice. CM contacted and faxed referral to [facility]. Marci with [facility] stated that the burial needs salesperson nurse would be in this evening to evaluate the patient. CM will continue to follow and assist as needed with discharge planning / needs. ENTERED DATE: 06/30/20 15:55 CT COMMENT TYPE: Discharge Planning REVIEWER: Tomas Guo [facility] CM TEAM INFORMED THAT WOUND VAC WILL BE AT FACILITY ON MONDAY. CM team [facility] that Patient can possibly DC to their facility on Monday when the Wound Vac arrives at their facility. CM team did not follow up with family for Hospice Plan B. CM team continue to [facility]. CM will continue to follow and will assist as needed with dc plans/needs. ENTERED DATE: 06/30/20 15:55 CT COMMENT TYPE: Discharge Planning REVIEWER: Tomas Guo POSSIBLE NEED FOR PLAN B. Received call from [facility]. CM informed that that the patient's needs may not be appropriate for their facility. Staff member stated that she will check with her gym supervisor and call CM team back. Staff member inquired if CM team had a plan B such as hospice. CM team will follow up with family. CM will continue to follow and will assist as needed with dc plans/needs. Appended by Tomas Guo on 06/30/2020 15:57 CDT: POSSIBLE DC MONDAY TO [facility] ENTERED DATE: 06/30/20 10:12 CT COMMENT TYPE: Discharge Planning REVIEWER: Evelyne Flores UPDATES FAXED TO DANIEL AT [facility]. WAITING CALL BACK TO SEE WHEN THEY CAN TAKE HIM BACK. CM TO FOLLOW AND ASSIST NEEDED. ENTERED DATE: 06/30/20 3:17 CT COMMENT TYPE: Discharge Planning REVIEWER: Jasmyn Villafana LATE ENTRY 06/29/20 CM called [facility] to see if they would be able to accommodate patient upon discharge. CM faxed over updated clinicals and will check back to see in [facility] will accept patient back. ENTERED DATE: 06/28/20 19:04 CT COMMENT TYPE: Discharge Planning REVIEWER: Jasmyn Villafana PATIENT IS A RESIDENT AT [facility] AND PLAN AT THIS TIME IS TO RETURN THERE UPON DISCHARGE ENTERED DATE: 06/25/20 14:11 CT COMMENT TYPE: Discharge Planning REVIEWER: Danni Coon UPDATES FAXED TO [facility]. I SPOKE WITH DANIEL AND INFORMED HER THAT THE PATIENT DID HAVE A PEG WITH TUBE FEEDINGS AT GOAL RATE, OXYGEN AND 2 WOUND VACS AT THIS TIME. CM WILL CONTINUE TO FOLLOW AND ASSIST WITH DISCHARGE PLANNING/NEEDS. DCP REVIEW SUMMARY ANTICIPATED D/C DATE: EXPECTED LOS : CASE STATUS: DCP Initiated INITIAL REVIEW: 06/09/2020 INITIAL REVIEWER: Jasmyn Villafana FINAL DISCHARGE DISPOSITION: 52 : [facility] FINAL REVIEWER: Jasmyn Villafana FINAL REVIEW DATE: DCP Focus Questions & Answers DCP Screen QUESTION: ANSWER High Risk Factors: : Hosp related to CHF, COPD, DM, End Stage Ds, CVA, CA DCP Evaluation QUESTION: ANSWER Patient's current cognitive status: : Alert Patient gives permission to discuss discharge plans with: (name, relationship and number) : KEON AGUILAR [phone] WINTER [phone] Patient's ability to cope with chronic illness : d. No chronic illness Alternate discharge plan (if recommended plan not agreed upon by patient and/or caregiver): : [facility] Does the patient have the ability to pay for or attain post discharge needs / services? : N/A Functional screen assessment: : Noticeable poor ADL management Physical Status: : Total care dependent Physical Status: : Speech impaired Physical Status: : Mobility impaired Physical Status: : Indwelling urinary catheter Physical Status: : Compromised skin integrity Equipment needed for post hospitalization: : Wound Vac Equipment needed for post hospitalization: : Pressure or Air Mattress Equipment needed for post hospitalization: : Peg Tube feeding/maintenance Equipment needed for post hospitalization: : Ostomy Supplies Equipment needed for post hospitalization: : Home Oxygen via Mask Is there a likelihood that the patient will require additional services to return to the preadmission environment? : Yes Functional screen comments: : TOTAL CARE Living Arrangements: : Nursing Home Facility Patient with capacity for self-care or can be cared for in same environment as prior to hospitalization? : Yes Baseline cognitive status: : Alert Preadmission facility can/cannot provide post hospital level of care needs: : Can - at same level of care as preadmission Facility / Agency name and contact information from Question 3 (if applicable): : [facility] Pharmacy name(s): : [facility] Does Patient have transportation to get home and to follow-up medical appointments when discharged from the hospital? : Yes Would patient like to participate in any Care Coordination programs (if applicable): : Not applicable Does the patient have electricity at home? : Yes Does the patient have running water in their house? : Yes Mental health screen: : No mental health history DCP Re-evaluation QUESTION: ANSWER Would patient like to participate in any Care Coordination programs (if applicable): : Not applicable PROVIDER NETWORKING REVIEW DATE: 06/30/2020 SERVICE TYPE: Nursing Home Facility REVIEWER: Evelyne Flores PROVIDER: FINAL PROVIDER? : FINAL DATE/TIME: CT PATIENT: SERGE DURHAM ENCOUNTER: [id number] MEDICAL RECORD#: [id number] ADMISSION DATE: 05/28/2020 DISCHARGE DATE: 07/01/2020 ATTENDING MD: MAYTE ECHEVERRIA : AGE: 69 MARITAL STATUS: S DC PLAN ID: [id number] FACILITY: [facility] PRINTED ON: 07/02/20 14:49 CT All edits/amendments must be made on the electronic document DICTATION DATE: 07/02/20 144 RECONCILIATION ACCOUNTANT: DM 07/02/20 1449 RPT#: [id number] DC DATE:07/01/20 STATUS: DIS IN [facility] [address] [place] [address] END OF REPORT
== END 2020-07-01 23:29 | disposition hospice, inpatient (51) | DRG 622 ==
LOC: D.ER 13:18 → D.MS 15:37 → D.ICU 15:37 → D.EDHOLD 15:37 → D.M2 15:37 → D.MS 16:20 → D.M2 06-03 07:59 → D.ICU 06-11 09:58 → D.MS 06-17 12:46 → D.ICU 06-22 12:10 → D.M2 06-24 18:16
PROVIDERS: Emergency Medicine; Family Medicine; Internal Medicine Nephrology; Internal Medicine Pulmonary Disease; Surgery; ADMIT Legal Medicine; ATTEND Legal Medicine
PROC: 0H9JXZZ Drainage of Left Upper Leg Skin, External Approach (ICD-10-PCS; 2020-06-06)
PROC: 05HN33Z Insertion of Infusion Device into Left Internal Jugular Vein, Percutaneous Approach (ICD-10-PCS; principal; 2020-06-08)
PROC: 0B21XFZ Change Tracheostomy Device in Trachea, External Approach (ICD-10-PCS; 2020-06-15)
PROC: 03HY32Z Insertion of Monitoring Device into Upper Artery, Percutaneous Approach (ICD-10-PCS; 2020-06-15)
PROC: 0H9JXZZ Drainage of Left Upper Leg Skin, External Approach (ICD-10-PCS; 2020-06-15)
PROC: 0D1N0Z4 Bypass Sigmoid Colon to Cutaneous, Open Approach (ICD-10-PCS; 2020-06-15 12:00)
PROC: 0JB70ZZ Excision of Back Subcutaneous Tissue and Fascia, Open Approach (ICD-10-PCS; 2020-06-15 12:00)
PROC: 2W1PX6Z Compression of Left Upper Leg using Pressure Dressing (ICD-10-PCS; 2020-06-22)
PROC: 0JH63XZ Insertion of Tunneled Vascular Access Device into Chest Subcutaneous Tissue and Fascia, Percutaneous Approach (ICD-10-PCS; 2020-06-22)
PROC: 0JB70ZZ Excision of Back Subcutaneous Tissue and Fascia, Open Approach (ICD-10-PCS; 2020-06-22 09:30)
DX: E43 Unspecified severe protein-calorie malnutrition (principal); A41.9 Sepsis, unspecified organism; L89.154 Pressure ulcer of sacral region, stage 4; G82.50 Quadriplegia, unspecified; J96.20 Acute and chronic respiratory failure, unspecified whether with hypoxia or hypercapnia; N17.0 Acute kidney failure with tubular necrosis; Z68.41 Body mass index [BMI] 40.0-44.9, adult; Z16.30 Resistance to unspecified antimicrobial drugs; B37.49 Other urogenital candidiasis; G72.81 Critical illness myopathy; L02.416 Cutaneous abscess of left lower limb; J95.03 Malfunction of tracheostomy stoma; R60.1 Generalized edema; Z66 Do not resuscitate; E11.9 Type 2 diabetes mellitus without complications; I48.91 Unspecified atrial fibrillation; R50.9 Fever, unspecified; E66.01 Morbid (severe) obesity due to excess calories; I10 Essential (primary) hypertension; B96.5 Pseudomonas (aeruginosa) (mallei) (pseudomallei) as the cause of diseases classified elsewhere

== ENCOUNTER 2020-07-01 23:34 | Inpatient (IN) | payer OTHER ==
[~2020-07-01] VITALS: Ht 182.9 cm; Wt 113.0 kg
[~2020-07-01 23:34] MED LIST: ACETAMINOP160 MG/5 M PO; ACIDOPHILUS-PE1 EACH PO; ALBUTEROL1.25 MG/3 INH; BOUDREAUXS BUTT60 GM TOPICAL; CARAFATE1 G PO; CARDURA2 MG PO; FLUTICASONE PRO16 GM NASAL; GALZIN50 MG PO; HEALTHYLAX17 GM PO; HYDROCODON-ACE1 EAC7 PO; LEVSIN/ANASP0.125 MG PO; LIPITOR20 MG PO; LOPRESSOR25 MG PO; PROMOD LIQUID P30 M1 PO; PROZAC20 MG PO; PROZAC40 MG PO; TIMOPTIC 0.5 % O5 ML EACH EYE; TRUSOPT 2 % OPT10 ML EACH EYE; XARELTO20 MG PO; ZYRTEC10 MG PO
--- NOTE | 2020-07-02 01:19 | NUR ---
PT PULLED OFF HIS COLOSTOMY BAG. CODE MUSCLE CALLED FOR LIFTING ASSISTANCE. COLOSTOMY BAG ATTACHMENT REPLACED. TOTAL BED CHANGE AND SACRAL WOUND DRESSED WITH WET TO DRY DRESSING. WOUND VAC REMOVED FROM LEFT THIGH. PACKING IN LEFT THIGH WOUND WILL NOT COME OUT. WILL PERIODICALLY SOAK IT WITH SALINE UNTIL IT LOOSENS. PT GIVEN MORPHINE FOR PAIN AND ATIVAN FOR AGITATION. PT SUCTIONED AFTER CARE DONE AND A MODERATE AMOUNT OF YELLOW SPUTUM WAS THE RESULT. PT APPEARS COMFORTABLE AT THIS TIME, WILL CONTINUE TO MONITOR PT.
[2020-07-02 08:25] VITALS: BP 110/50
[2020-07-02 13:24] VITALS: BP 110/50
[2020-07-02 20:53] VITALS: BP 125/52
--- NOTE | 2020-07-02 23:33 | MORECARE ---
CASE MANAGEMENT DISCHARGE SUMMARY PATIENT: SERGE DURHAM UNIT: [id number] ADM DATE: 07/01/20 AGE: 69 : 51 SEX: M ROOM/BED: D.2103 AUTHOR: BECKY,DOC PHYSICIAN: REFERRING PHYSICIAN: MINI VICENTE MD DATE OF SERVICE: 07/02/20 Case Management Discharge Planning Summary DCP REVIEW SUMMARY ANTICIPATED D/C DATE: EXPECTED LOS : CASE STATUS: DCP Initiated INITIAL REVIEW: 07/01/2020 INITIAL REVIEWER: Jasmyn Villafana FINAL DISCHARGE DISPOSITION: : FINAL REVIEWER: FINAL REVIEW DATE: DCP Focus Questions & Answers QUESTION: ANSWER : PATIENT: SERGE DURHAM ENCOUNTER: [id number] MEDICAL RECORD#: [id number] ADMISSION DATE: 07/01/2020 DISCHARGE DATE: ATTENDING MD: MINI COLBERT : AGE: 69 MARITAL STATUS: S DC PLAN ID: [id number] FACILITY: [facility] PRINTED ON: 07/02/20 23:32 CT All edits/amendments must be made on the electronic document DICTATION DATE: 07/02/202331 NAILHEAD PUNCHER: DM 07/02/202331 RPT#: [id number] DC DATE: STATUS: ADM IN [facility] [address] [place] [address] END OF REPORT
[2020-07-03 01:11] VITALS: BP 99/45
[2020-07-03 04:59] VITALS: BP 93/37
--- NOTE | 2020-07-03 06:16 | NUR ---
I have reviewed this patient and I concur with the Shift Assessment completed by the Licensed Practical Nurse today this shift.
[2020-07-03 08:29] VITALS: BP 106/50
[2020-07-03 12:19] VITALS: Ht 182.9 cm; Wt 113.0 kg
--- NOTE | 2020-07-03 14:12 | MORECARE ---
CASE MANAGEMENT DISCHARGE SUMMARY PATIENT: SERGE DURHAM UNIT: [id number] ADM DATE: 07/01/20 AGE: 69 : 51 SEX: M ROOM/BED: D.2103 AUTHOR: BECKY,DOC PHYSICIAN: REFERRING PHYSICIAN: MINI VICENTE MD DATE OF SERVICE: 07/03/20 Case Management Discharge Planning Summary DCP REVIEW SUMMARY ANTICIPATED D/C DATE: EXPECTED LOS : CASE STATUS: DCP Initiated INITIAL REVIEW: 07/01/2020 INITIAL REVIEWER: Jasmyn Villafana FINAL DISCHARGE DISPOSITION: : FINAL REVIEWER: FINAL REVIEW DATE: DCP Focus Questions & Answers QUESTION: ANSWER : PATIENT: SERGE DURHAM ENCOUNTER: [id number] MEDICAL RECORD#: [id number] ADMISSION DATE: 07/01/2020 DISCHARGE DATE: ATTENDING MD: MINI COLBERT : AGE: 69 MARITAL STATUS: S DC PLAN ID: [id number] FACILITY: [facility] PRINTED ON: 07/03/20 14:11 CT All edits/amendments must be made on the electronic document DICTATION DATE: 07/03/201410 CORPORATE TUTOR: DM 07/03/20 141 RPT#: [id number] DC DATE: STATUS: ADM IN [facility] [address] [place] [address] END OF REPORT
[2020-07-03 21:14] VITALS: BP 107/40
--- NOTE | 2020-07-03 22:40 | NUR ---
PT RESTING COMFORTABLY AT THIS TIME. RR SHALLOW BUT EVEN. PT HAS HAD PRN MEDICATIONS. I SUCTIONED TRACH AND EMPTIED COLOSTOMY OF A 100ML OF BOWEL MOVEMENT. NO S/S OF DISTRESS AT THIS TIME. PT IS BEDFAST SIDE RAILS UP X3 BED ALRM IN PLACE. CALL LIGHT WITHIN REACH. WILL CONTINUE TO MONITOR.
[2020-07-04 01:47] VITALS: BP 111/44
--- NOTE | 2020-07-04 02:50 | NUR ---
I have reviewed this patient and I concur with the Shift Assessment completed by the Licensed Practical Nurse today this shift.
[2020-07-04 05:50] VITALS: BP 101/36
--- NOTE | 2020-07-04 06:35 | NUR ---
I have reviewed this patient and I concur with the Shift Assessment completed by the Licensed Practical Nurse today this shift.
--- NOTE | 2020-07-04 07:11 | NUR ---
18 FR SANDOVAL CATHETER INSERTED USING STERILE TECHNIQUE D/T EXTERNAL CATH CONTINOUSLY LEAKING OUT. TOLERATED WELL. 10ML SALINE TO BALLOON. STAT LOCK PLACED ON RIGHT THIGH. IMMEDIATE RETURN OF APPROXIMATELY 350ML DARK YELLOW URINE. BAG SECURED TO BEDSIDE.
[2020-07-04 08:00] VITALS: BP 102/40
--- NOTE | 2020-07-04 12:31 | HP ---
PATIENT: SERGE DURHAM MEDICAL RECORD: [id number] ACCOUNT: [id number] LOCATION:[facility].2103 : 51 ADMISSION DATE: 07/01/20 PCP: No PCP HISTORY AND PHYSICAL EXAMINATION DATE OF ADMITTED TO HOSPICE: 07/02/2020 DIAGNOSES FOR HOSPICE: 1. Severe protein-calorie malnutrition. 2. Anasarca. 3. Chronic respiratory failure. 4. Quadriplegia. 5. Atrial fibrillation. 6. Thigh and sacral wounds with poor healing. 7. Diabetes. 8. Paroxysmal atrial fibrillation. HISTORY OF PRESENT ILLNESS: This is a 69-year-old -[place] male who reportedly had an anterior cervical fusion in 12/2019 at [facility] in [place] had a prolonged hospitalization at that time. He had a cardiac arrest on 01/20/2020 and then again on 02/24/2020. He required a tracheostomy and PEG tube placement. Basically, he was a quadriplegic with critical illness myopathy. He was discharged from there admitted to a local group home around [place] for chronic management and was brought to the Emergency Department for mental status changes. His albumin was found to be 1.3 on 05/28/2020. He had been on multiple antibiotics for multiple infections. During the approximate 5 weeks that he was in the [facility], he was treated with albumin, diuretics, IV antibiotics. He was treated for a left thigh abscess and then a sacral abscess both requiring I&D and wound care eventually requiring wound VACs. He had sepsis, multi-drug resistant Pseudomonas from a respiratory culture. He was seen by a cardiology for his atrial fibrillation. Nephrology for acute kidney injury requiring hemodialysis for a period of time, general surgery for I&D of a massive left thigh abscess. He had multiple decubitus ulcers. He underwent a diverting colostomy. He had a chronic [place]land catheter placed. He was on ventilator during the worst part of his sepsis. Over the course of the hospitalization, he had really no major improvement in his wound care. He had a very poor quality of life being a quadriplegic he was minimally responsive through most of this and had multiple comorbidities. Discussions had been ongoing with the patient's family. His sister is his POA and because things were not getting better and he had a very poor quality of life, the power of family law attorney agreed to comfort care and hospice. PAST MEDICAL HISTORY: Morbid obesity, hypertension, diabetes, hyperlipidemia, paroxysmal atrial fibrillation, glaucoma, sleep apnea, all prior to the hospitalizations. PAST SURGICAL HISTORY: ACDF in 12/2019 at [facility] in [place]. He also had procedures done as mentioned above for wound care here at [facility]. ALLERGIES: REPORTEDLY TO PENICILLIN, TIZANIDINE and HEPARIN. SOCIAL HISTORY: Not able to obtain from the patient. HABITS: Former smoker. No alcohol or drugs. HISTORY AND PHYSICAL [id number] SERGE DURHAM FAMILY HISTORY: Unobtainable. REVIEW OF SYSTEMS: Unobtainable on this patient who is not responsive to me. PHYSICAL EXAMINATION: VITAL SIGNS: Temperature 99.5, pulse 74, respirations 19, blood pressure 125/52, O2 sat 97%. GENERAL: This is a morbidly obese male who does not appear in acute distress. He does appear comfortable. He does not respond to me. HEENT: Grossly within normal limits. NECK: Supple. Trach in place. HEART: Irregularly irregular with atrial fibrillation. LUNGS: With diminished breath sounds diffusely. ABDOMEN: Morbidly obese, soft, nontender. There is a colostomy in place. SKIN: He has wound VACs at this time at sacral area and treatment for other decubitus ulcers as well. NEUROLOGIC: He does not follow any commands. ASSESSMENT: 1. Severe protein-calorie malnutrition with anasarca. 2. Chronic respiratory failure. 3. Quadriplegia. 4. Large thigh and sacral wounds with very slow if any healing. 5. Diabetes. 6. Atrial fibrillation. 7. Hypertension. 8. Sleep apnea. PLAN: With his very poor quality of life and dismal poor prognosis decisions were made for comfort care and he will stay in the inpatient setting here at [facility]. TRANSINT:[id number] Voice Confirmation ID: [id number] DOCUMENT ID: [id number] MINI VICENTE MD at 1231 CC: [id number] DICTATION DATE: 07/03/2041 GROOVER AND STRIPER OPERATOR: 07/03/20 0156 ADM IN [facility] [address] [place] [address]
[2020-07-04 20:30] VITALS: BP 86/39
[2020-07-05 00:30] VITALS: BP 95/37
[2020-07-05 08:42] VITALS: BP 99/37
--- NOTE | 2020-07-05 09:37 | NUR ---
RESTING IN BED, NO DISTRESS NOTED, MEDS PER PEG, TURNED PER STAFF, CONT TO MONITOR BP, LASIX HELD
--- NOTE | 2020-07-05 12:39 | NUR ---
IN PATIENT CHART TO ADMINISTER PAIN MEDICATION AND PATIENT NURSE NOW BACK ON FLOOR.
--- NOTE | 2020-07-05 13:15 | NUR ---
COLOSTOMY BARRIER CHANGED ALONG WITH ALL DRESSING TO BUTTOCKS AND LEGS, NO S/S OF INFECTION, CONT TO MONITOR
[2020-07-05 22:06] VITALS: BP 122/41
[2020-07-06 08:44] VITALS: BP 108/35
--- NOTE | 2020-07-06 09:46 | NUR ---
PATIENT IS AWAKE IN ROOM AT THIS TIME, PATIENT IS CRYING, NURSE ASKS IF HES IN PAIN AND HE NODS. NURSE TO GIVE IV PAIN MEDS
--- NOTE | 2020-07-06 10:45 | NUR ---
NURSE IN ROOM WITH HOSPICE - WOUND CARE, REPOSITION, VITALS AND PAIN MEDS ARE GIVEN AROUND THIS TIME.
[2020-07-06 11:55] VITALS: BP 100/60
--- NOTE | 2020-07-06 16:33 | NUR ---
DILAUDID ADVERTISING STRATEGIST STARTED AT THIS TIME.
--- NOTE | 2020-07-06 18:20 | NUR ---
NURSE CHANGES WAFER AND BAG TO COLOSTOMY.
[2020-07-06 19:29] VITALS: BP 123/63
--- NOTE | 2020-07-06 23:44 | NUR ---
PT ALERT BUT NONVERBAL. RR SHALLOW AT 10. REPLECED LEAD VULCANIZING OPERATOR MEDICATION. GAVE A 1MG BOLUS. PT RESTING COMFORTABLY. WILL CONTINUE TO MONITOR
--- NOTE | 2020-07-07 03:48 | NUR ---
PT COMFORTABLY RESTING AT THIS TIME. RR SHALLOW
--- NOTE | 2020-07-07 03:55 | NUR ---
PT RR-SHALLOW 9. PT RESTING COMFORTABLY WITH EYES CLOSED. 81/39 BP P-91 T-99.1. WILL CONTINUE TO MONITOR.
--- NOTE | 2020-07-07 05:06 | NUR ---
I have reviewed this patient and I concur with the Shift Assessment completed by the Licensed Practical Nurse today this shift.
[2020-07-07 08:17] VITALS: BP 98/52
--- NOTE | 2020-07-07 09:00 | NUR ---
NURSE IN ROOM TO GIVE PEG MEDS. DR VICENTE BY TO SEE PATIENT. PATIENT IS RESTING COMFORTABLY. NAD NOTED CALL LIGHT IN REACH
--- NOTE | 2020-07-07 10:17 | NUR ---
RESP IN ROOM TO SUCTION PATIENT, NEW SIGNAL TOWER OPERATOR SYRINGE INSERTED INTO IV PUMP
--- NOTE | 2020-07-07 11:41 | NUR ---
PATIENT IS RESTING COMFORTABLY AT THIS TIME, NO SIGNS OF DISCOMFORT.
--- NOTE | 2020-07-07 18:12 | NUR ---
WOUND CARE COMPLETED ON PATIENT'S MULTIPLE WOUNDS. PATIENT GIVEN A PRN ATIVAN PRIOR TO WOUND CARE DUE TO PT GRIMACING . PATIENT TOLERATED WELL.
[2020-07-07 20:00] VITALS: BP 124/48
[2020-07-08 05:03] VITALS: BP 114/58
--- NOTE | 2020-07-08 05:14 | NUR ---
PT IS SLEEPING IN WHEELCHAIR NEAR NURSES' DESK. NO APPARENT DISTRESS AT THIS TIME.
[2020-07-08 08:00] VITALS: BP 81/28
--- NOTE | 2020-07-08 19:30 | NUR ---
ASSESSMENT PER FLOW SHEET, 02 AT 6LPM VIA TRAECH, LEFT HEMOSPLIT (BLUE PORT) INFUSING DILAUDID VIA SEWING DEMONSTRATOR PER MD ORDERS, SEE EMAR, COLOSTOMY AND PEG TUBE INTACT, SANDOVAL CATH INTACT DRAINING DARK YELLOW URINE, HEEL PROTECTORS IN PLACE, BED IN LOW POSITION, SIDE RAILS X 2, CALL LIGHT IN REACH
[2020-07-08 20:00] VITALS: BP 117/61
--- NOTE | 2020-07-08 21:55 | NUR ---
OBTAINED BP, ADM 2100 MED PER MD ORDERS VIA PEG TUBE
--- NOTE | 2020-07-09 00:33 | NUR ---
PT RESTING WITH EYES CLOSED, RESP QUIET, NO DISTRESS NOTED, LEFT UNDISTURBED AT THIS TIME
--- NOTE | 2020-07-09 02:26 | NUR ---
PT RESTING WITH EYES CLOSED, RESP QUIET, NO DISTRESS NOTED, LEFT UNDISTURBED AT THIS TIME, BED IN LOW POSITION, SIDE RAILS X 2, CALL LIGHT IN REACH
--- NOTE | 2020-07-09 04:00 | NUR ---
PUMPS CLEARED, SANDOVAL CATH EMPTIED
[2020-07-09 08:23] VITALS: BP 101/69
--- NOTE | 2020-07-09 09:27 | NUR ---
Nutrition Follow-up: Hospice. Trach. PEG. NPO. No new wt; last wt: 295# (06/24) No new labs Meds noted: Miralax, Lasix, KCl -RD available to assist as needed. -Will follow up within 7 days if pt still admitted.
[2020-07-09 15:11] VITALS: BP 122/77
--- NOTE | 2020-07-09 15:45 | NUR ---
BED BATH AND ALL DRESSINGS CHANGED WITH ASSISTANCE OF 2 TECHS
--- NOTE | 2020-07-09 19:30 | NUR ---
PT IN BED, EYES CLOSED, RESP EVEN AND UNLABORED, NO DISTRESS NOTED, CL IN REACH, SR UP X 2.
[2020-07-09 22:48] VITALS: BP 123/66
--- NOTE | 2020-07-09 23:10 | NUR ---
1MG BOLUS GIVEN PER ORDER FOR COMFORT.
--- NOTE | 2020-07-10 04:22 | NUR ---
I have reviewed this patient and I concur with the Shift Assessment completed by the Licensed Practical Nurse today this shift.
[2020-07-10 08:00] VITALS: BP 90/85
--- NOTE | 2020-07-10 19:30 | NUR ---
PT IN BED, EYES CLOSED, RESP EVEN AND UNLABORED, NO DISTRESS NOTED, CL IN REACH, SR UP X 2.
[2020-07-10 21:53] VITALS: BP 116/79
[2020-07-11 01:54] VITALS: BP 89/32
--- NOTE | 2020-07-11 02:17 | NUR ---
I have reviewed this patient and I concur with the Shift Assessment completed by the Licensed Practical Nurse today this shift.
[2020-07-11 06:24] VITALS: BP 156/72
[2020-07-11 08:17] VITALS: BP 82/40
--- NOTE | 2020-07-11 09:03 | NUR ---
DAILY ASSESSMENT COMPLETE, SEE PROCESS INTERVENTIONS CHARTING. DILAUDID BLAST FURNACE CHECKER INFUSING AT 1MG/HR. ZINA, FURNACE FITTER, TO ALSO PERFORM DAILY ASSESSMENT AND ASSIST WITH CHANGING BLAST FURNACE CHECKER SYRINGES NEEDED. PATIENT IN NO DISTRESS, NO SIGNS OF PAIN, FLACC 0.
--- NOTE | 2020-07-11 11:45 | NUR ---
PATIENT ROUNDING PERFORMED, DR VICENTE AT BEDSIDE. INFORMED OF PATIENT STATUS THOUGH THE MORNING. PATIENT DISPLAYS EYEMOVENT AND LIP QUIVERING.
--- NOTE | 2020-07-11 12:00 | NUR ---
COPY OF ORDERS AND PROGRESS NOTES PROVIDED TO KIRIT LION WITH [facility], ALSO GIVEN UPDATE ON THE PATIENT. AT BEDSIDE FOR ASSESSMENT.
--- NOTE | 2020-07-11 13:27 | NUR ---
NURSING ROUND PERFORMED. NO CHANGE IN STATUS. NAD. RECYCLING PROGRAM MANAGER INFUSING.
--- NOTE | 2020-07-11 19:53 | NUR ---
INITIAL ROUNDS AND ASSESSMENT COMPLETED. PT RESTING WITH NO DISTRESS. CALL LIGHT IN REACH.
[2020-07-11 20:30] VITALS: BP 108/46
--- NOTE | 2020-07-12 01:04 | NUR ---
ORAL CARE PERFORMED. PT DOES MOVE HEAD AWAY AND TRY TO CLOSE MOUTH. COLOSTOMY EMPTIED OF 100ML LIQUID BM. PEG DRESSING CHANGED. DRESSINGS TO BILATERAL FEET C/D/I , BOTH FEEI IN HEEL PROTECTORS. IV DILAUDID DATE NIGHT SITTER INFUSING 1MG/HR.
--- NOTE | 2020-07-12 06:48 | NUR ---
NO CHANGE FROM INITIAL SHIFT ASSESSMENT. CALL LIGHT IN REACH. REPORT TO ONCOMING SHIFT.
[2020-07-12 08:47] VITALS: BP 86/47
--- NOTE | 2020-07-12 10:38 | NUR ---
PT PRE MEDICATED WITH DILAUDID 4 MG PRN FOR WOUND CARE/DRESSING CHANGES PER EMAR.
--- NOTE | 2020-07-12 19:45 | NUR ---
INITIAL ROUNDS AND ASSESSMENT COMPLETED. PT RESTING IN BED. ON HOSPICE/COMFORT MEASURES. DILAUDID QUOTATION CLERK 1MG/HR CONTINOUS. WILL MOVE HEAD WHEN TOUCHED OR ORAL CARE PROVIDED. COLOSTOMY INTACT. PEG TUBE IN PLACE AND CLAMPED. #7 TRACH WITH O2 @ 6L/NC. BILATERAL DRESSINGS TO FEET AND BOTH ALSO ENCASED IN HEEL PROTECTORS. DRESSING TO SACRAL/COCCYX/BUTTOCKS C/D/I.
[2020-07-12 21:58] VITALS: BP 101/62
[2020-07-13 02:07] VITALS: BP 146/68
--- NOTE | 2020-07-13 05:33 | NUR ---
NO CHANGE FROM INITIAL SHIFT ASSESSMENT. ORAL CARE PROVIDED. COLOSTOMY EMPTIED. CARE PROVIDED TO PEG SITE. PT RESPONDS TO CARE BY WITHDRAWAL. TRACH CARE PROVIDED BY RT. CONTINOUS DILAUDID 1MG/HR INFUSING FOR OPTIMAL LEVEL OF COMFORT. DRESSINGS TO BOTH FEET C/D/I AND HEEL PROTECTORS IN PLACE.
[2020-07-13 06:07] VITALS: BP 129/52
[2020-07-13 08:17] VITALS: BP 89/55
[2020-07-13 12:02] VITALS: BP 70/40
--- NOTE | 2020-07-13 18:32 | NUR ---
PATIENT IS SLEEPING. BREATHING IS SHALLOW. NAD NOTED.
--- NOTE | 2020-07-13 18:45 | NUR ---
PT RESTING QUIETLY, PHONE MANAGER DILAUDID, CONTINUOUS INFUSION, CONTINUES UNDER HOSPICE CARE. NAD NOTED WILL CONTINUE TO MONITOR
[2020-07-13 19:00] VITALS: BP 107/46
[2020-07-14 07:30] VITALS: BP 81/41
--- NOTE | 2020-07-14 08:42 | NUR ---
REPOSITIONED PATIENT AND ORAL CARE PROVIDED TO PATIEET AT THIS TIME.
--- NOTE | 2020-07-14 18:25 | NUR ---
WOUND CARE PROVIDED AT THIS TIME TO BOTTOM, AND THIGH. PATIENT PREMEDICATED WITH ATIVAN AND DILAUDID DRIP GOING STILL
--- NOTE | 2020-07-14 19:10 | NUR ---
pt lying in bed conttinues under hospice care, rotary soil stabilizer infusin 1mg/hr continous dilaudid. pt with slow, shallow breaths no distress noted will continue to monitor
[2020-07-14 20:00] VITALS: BP 89/42
[2020-07-15 08:35] VITALS: BP 71/43
--- NOTE | 2020-07-15 18:55 | NUR ---
PT LYING IN BED, COTNINUE ON HOSPICE CARE, CONTINUOUS DILAUDID DIRECTOR QUALITY SYSTEMS INFUSING. NO DISTRESS NOTED WILL CONTINUE TO MONITOR
[2020-07-15 21:26] VITALS: BP 70/44
[2020-07-16] VITALS: BP 72/43
[2020-07-16 07:00] VITALS: BP 95/44
--- NOTE | 2020-07-16 10:12 | NUR ---
PATIENT NOT RESPONDING TO VERBAL STIMULI, PATIENT RESTING COMFORTABLY AND NOT IN PAIN, IV MEDICATIONS ADMINISTERED, CLIR, BLP
--- NOTE | 2020-07-16 12:01 | NUR ---
Nutrition Follow-up: Hospice. Unresponsive. Trach/PEG. Diet: NPO Wt: 249# (07/11) No new labs Meds reviewed -RD available to assist as needed. -Will follow up within 7 days if pt still admitted.
[2020-07-16 22:11] VITALS: BP 96/58
[2020-07-17 02:11] VITALS: BP 92/57
[2020-07-17 05:25] VITALS: BP 100/55
[2020-07-17 08:33] VITALS: BP 103/62
--- NOTE | 2020-07-17 09:20 | NUR ---
PATIENT LYING SEMI FOWLERS EYES RESTING, NO S/S OF DISTRESS, PATIENTS EYES MOVE AT VERBAL STIMULI, MEDICATIONS INFUSING, BLP CLIR
--- NOTE | 2020-07-17 19:10 | NUR ---
REPORT RECEIVED, PT CARE ASSUMED. PT LYING IN BED EYES CLOSED, RR 18-20/MIN #7 TRACH COLLAR @ 9L/MIN, NAD OBSERVED. OPENS EYES TO VERBAL STIMULI, NO VERBAL RESPONSE, ON HOSPICE/COMFORT MEASURES. DILAUDID CORRUGATOR MACHINE OPERATOR CONT @ 1.25 MG/HR WITH NS @ 30 ML/HR. CPOC.
[2020-07-17 21:31] VITALS: BP 123/62
[2020-07-18 01:11] VITALS: BP 102/65
--- NOTE | 2020-07-18 03:06 | NUR ---
NO CHANGES OBSERVED AT THIS TIME.
[2020-07-18 05:19] VITALS: BP 104/64
[2020-07-18 07:30] VITALS: BP 103/60
--- NOTE | 2020-07-18 11:20 | NUR ---
PATIENT LYING SEMI FOLWERS EYES RESTING, BREATHING LABORED AND SHALLOW, PATIENT RESPONDS TO VERBAL STIMLI AND IS MOANING MODERATLY, BOLUS ADMINISTERED, BLOP, CLIR,
--- NOTE | 2020-07-18 13:35 | NUR ---
I have reviewed this patient and I concur with the Shift Assessment completed by the Licensed Practical Nurse today this shift.
--- NOTE | 2020-07-18 15:08 | NUR ---
PATIENT IS ORDERED QDAY TRACH CARE. UPON ENTERING PT ROOM PT DEMONSTRATED AUDIBLE GURGLING AROUND TRACH. TRACH COLLAR WAS FOUND WITH NOTICEABLY DRIED THICK, GREENISH, CHAPPELL SECRETIONS OCCLUDING ENTIRE TRACH COLLAR. PT SPO2 WAS 89-92%. PT TRACH COLLAR WAS STUCK TO HIS SKIN AND DRIED TO THE OUTER PART OF HIS INNER CANNULA. TRACH CARE WAS PERFORMED, INNER CANNULA SCRUBBED TO REMOVE DRIED OCCLUSIONS, TRACH COLLAR WAS REPLACED AND PTS SATS CAME BACK UP TO 98-99%.
[2020-07-18 21:07] VITALS: BP 103/62
[2020-07-19 01:23] VITALS: BP 123/60
[2020-07-19 05:07] VITALS: BP 121/79
--- NOTE | 2020-07-19 06:26 | NUR ---
ARRIVED TO PTS ROOM TO DO TRACH CARE AND PT SPO2 WAS 82-84%. WHEN I ENTERED THE ROOM PTS TRACH WAS OCCLUDED IN DRY GREEN SECRETIONS. PERFORMED TRACH CARE AND SUCTIONED PT AMD HIS SPO2 WENT UP TO 92-94%
--- NOTE | 2020-07-19 07:20 | NUR ---
RECIEVE REPORT. RESTING IN BED WITH EYES CLOSED. OXYGEN THERAPY THROUGH TRACH. CONTINUE HOSPICE CARE.
[2020-07-19 08:07] VITALS: BP 110/68
--- NOTE | 2020-07-19 15:53 | NUR ---
RESTING IN BED. MAKES EYE CONTACT. COMFORT MEASURES CONTINUED. KEON OSBORNE (SISTER) AT BEDSIDE. SANDOVAL DRAINING BY GRAVITY. RESPIRATORY COMPLETE TRACH CARE. INITIATE ORAL CARE. CONTINUE PLAN OF CARE AND SAFETY PRECAUTIONS.
--- NOTE | 2020-07-19 17:45 | NUR ---
WHILE EMPTYING COLOSTOMY AND PREPARING TO CHANGE COLOSTOMY PATIENT STOPPED BREATHING. PULSE NOT PALPABLE. NOTIFY [facility].
--- NOTE | 2020-07-19 17:59 | NUR ---
NOTIFY OF PATIENT PASSING.
--- NOTE | 2020-07-19 20:09 | NUR ---
HOME HERE AND PICKED UP BODY.
--- NOTE | 2020-07-19 20:12 | MORECARE ---
CASE MANAGEMENT DISCHARGE SUMMARY PATIENT: SERGE DURHAM UNIT: [id number] ADM DATE: 07/01/20 AGE: 69 : 51 SEX: M ROOM/BED: D.2103 AUTHOR: BECKY,DOC PHYSICIAN: REFERRING PHYSICIAN: MINI VICENTE MD DATE OF SERVICE: 07/19/20 Case Management Discharge Planning Summary DCP REVIEW SUMMARY ANTICIPATED D/C DATE: EXPECTED LOS : CASE STATUS: DCP Initiated INITIAL REVIEW: 07/01/2020 INITIAL REVIEWER: Jasmyn Villafana FINAL DISCHARGE DISPOSITION: : FINAL REVIEWER: FINAL REVIEW DATE: DCP [employer] Questions & Answers QUESTION: ANSWER : PATIENT: SERGE DURHAM ENCOUNTER: [id number] MEDICAL RECORD#: [id number] ADMISSION DATE: 07/01/2020 DISCHARGE DATE: 07/19/2020 ATTENDING MD: MINI COLBERT : AGE: 69 MARITAL STATUS: S DC PLAN ID: [id number] FACILITY: [facility] PRINTED ON: 07/19/20 20:12 CT All edits/amendments must be made on the electronic document DICTATION DATE: 07/19/202011 HOGSHEAD HOOPER: DM 07/19/202011 RPT#: [id number] DC DATE:07/19/20 STATUS: DIS IN [facility] [address] [facility] [place] [address] END OF REPORT
--- NOTE | 2020-07-20 07:18 | MORECARE ---
CASE MANAGEMENT DISCHARGE SUMMARY PATIENT: SERGE DURHAM UNIT: [id number] ADM DATE: 07/01/20 AGE: 69 : 51 SEX: M ROOM/BED: D.2103 AUTHOR: BECKY,DOC PHYSICIAN: REFERRING PHYSICIAN: MINI VICENTE MD DATE OF SERVICE: 07/20/20 Case Management Discharge Planning Summary DCP REVIEW SUMMARY ANTICIPATED D/C DATE: EXPECTED LOS : 0 CASE STATUS: DCP Complete INITIAL REVIEW: 07/01/2020 INITIAL REVIEWER: Jasmyn Villafana FINAL DISCHARGE DISPOSITION: 42 : in a Medical Facility (Hospice Claims) FINAL REVIEWER: Danni Coon FINAL REVIEW DATE: 07/20/2020 DCP [employer] Questions & Answers QUESTION: ANSWER : PATIENT: SERGE DURHAM ENCOUNTER: [id number] MEDICAL RECORD#: [id number] ADMISSION DATE: 07/01/2020 DISCHARGE DATE: 07/19/2020 ATTENDING MD: MINI COLBERT : AGE: 69 MARITAL STATUS: S DC PLAN ID: [id number] FACILITY: [facility] PRINTED ON: 07/20/20 7:18 CT All edits/amendments must be made on the electronic document DICTATION DATE: 07/20/20717 SIDING STAPLER: AMILCAR 07/20/20717 RPT#: [id number] DC DATE:07/19/20 STATUS: DIS IN [facility] [address] [place] [address] END OF REPORT
== END 2020-07-19 20:09 | DRG 951 ==
LOC: D.M2 23:34
PROVIDERS: ADMIT Family Medicine; ATTEND Family Medicine
DX: Z51.5 Encounter for palliative care (principal)